=== PATIENT | male | born 1965 | race African-American/Black ===

== ENCOUNTER 2016-07-11 10:10 | Inpatient (IN) | payer OTHER ==
[2016-07-11 10:50] VITALS: BMI 25.8
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
[2016-07-11] MEDS ORDERED: MAGNESIUM CITRATE 300 ML BOTTLE PO PRN (15:14)
[2016-07-11] MEDS ORDERED: MAGNESIUM HYDROX 2400MG/30ML ORAL SUSPENSION 30 ML CUP PO PRN (15:14)
[2016-07-11] MEDS ORDERED: P-EPHED 60MG/TRIPROLIDI 2.5MG TABLET PO PRN (15:14)
[2016-07-11] MEDS ORDERED: MENTHOL/PHENOL 1 EACH UD MM PRN (15:14)
[2016-07-11] MEDS ORDERED: LOPERAMIDE HCL 2 MG CAPSULE PO PRN (15:14)
[2016-07-11] MEDS ORDERED: MAG HYDROX/AL HYDROX/SIMETH 30 ML UNIT-DOSE CUP PO PRN (15:14)
[2016-07-11] MEDS ORDERED: guaiFENesin/D-METHORPHAN HB 10 ML UNIT-DOSE CUPS PO PRN (15:14)
[2016-07-11] MEDS ORDERED: NICOTINE POLACRILEX 2 MG GUM BUC PRN (15:14)
[2016-07-11] MEDS ORDERED: ACETAMINOPHEN 325 MG TABLET (FP) PO PRN (15:14)
[2016-07-11] MEDS ORDERED: IBUPROFEN 400 MG TABLET (FP) PO PRN (15:14)
[2016-07-11] MEDS ORDERED: chlordiazePOXIDE HCL 25 MG CAPSULE PO PRN (15:14)
[2016-07-11] MEDS ORDERED: diphenhydrAMINE HCL 50 MG CAPSULE PO PRN (15:14)
[2016-07-11] MEDS ORDERED: hydrOXYzine PAMOATE 50 MG CAPSULE (FP) PO PRN (15:14)
[2016-07-11] MEDS ORDERED: chlordiazePOXIDE HCL 25 MG CAPSULE PO ONE (15:24)
[2016-07-11] MEDS ORDERED: METHADONE HCL 10 MG TABLET (FOR DETOX USE ONLY) PO ONE ×2 (15:25→23:00)
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
[2016-07-11] MEDS: NICOTINE 21 MG/24 HOURS TOPICAL PATCH TD SCH (15:38)
[2016-07-11 17:08] LABS: URINE APPEARANCE CLEAR; URINE BILIRUBIN NEGATIVE (NEGATIVE); URINE BLOOD NEGATIVE (NEGATIVE); URINE COLOR LTYELLOW; URINE GLUCOSE (UA) NEGATIVE (NEGATIVE); URINE KETONE NEGATIVE (NEGATIVE); URINE LEUK ESTERASE NEGATIVE (NEGATIVE); URINE NITRITE NEGATIVE (NEGATIVE); URINE PROTEIN NEGATIVE (NEGATIVE); URINE UROBILINOGEN NEGATIVE E.U./dl (0.2-1.0)
[2016-07-11] MEDS: chlordiazePOXIDE HCL 25 MG CAPSULE PO SCH ×2 (17:37→22:05)
[2016-07-11] MEDS: QUEtiapine FUMARATE 50 MG TABLET PO SCH (22:05)
[2016-07-11] MEDS: THIAMINE HCL 100 MG TABLET (FP) PO SCH (22:05)
[2016-07-12] MEDS: chlordiazePOXIDE HCL 25 MG CAPSULE PO SCH ×4 (06:01→22:50)
[2016-07-12] MEDS ORDERED: METHADONE HCL 10 MG TABLET (FOR DETOX USE ONLY) PO SCH (10:00)
[2016-07-12 10:43] LABS: MCH 29.8 pg (25.7-33.7); MCHC 32.7 g/dl (32.0-35.9); MEAN CELL VOLUME 91.1 fl (80-96); PLATELET COUNT 200 K/MM3 (134-434); RDW 14.3 % (11.9-15.9); WHITE BLOOD COUNT 4.9 K/mm3 (4.0-10.0)
[2016-07-12 10:54] LABS: ALBUMIN 3.9 g/dl (3.4-5.0); ANION GAP 6 (8-16); CALCIUM 9.3 mg/dL (8.5-10.1); CO2 33 mmol/L (21-32); CREATININE 0.9 mg/dL (0.7-1.3); GLUCOSE,RANDOM 100 mg/dL (74-106); SGOT/AST 25 U/L (15-37); SGPT/ALT 38 U/L (12-78)
[2016-07-12 10:56] LABS: ALK PHOS 72 U/L (45-117); BILIRUBIN,TOTAL 0.6 mg/dL (0.2-1.0); TOT PROT 7.4 g/dl (6.4-8.2)
[2016-07-12] MEDS: PRENATAL VITAMINS W/ FOLIC ACID TABLET (FP) PO SCH (11:23)
[2016-07-12] MEDS: NICOTINE 21 MG/24 HOURS TOPICAL PATCH TD SCH (11:24)
--- NOTE | 2016-07-12 12:01 | PN ---
S CIWA - CIWA Score Nausea/Vomitin Muscle Tremors: 3 Anxiety: 3 Agitation: 3 Paroxysmal Sweats: 1-Minimal Palms Moist Orientation: 0-Oriented Tacttile Disturbances: 1-Very Mild Itch/Numbness Auditory Disturbances: 1-Very Mild Visual Disturbances: 1-Very Mild Sensitivity Headache: 2-Mild CIWA-Ar Total Score: 18 BHS COWS - Scale Resting Pulse: 0= [place] 80 or Below Sweatin= Chills/Flushing Restless Observation: 3= Extraneous Movement Pupil Size: 1= Pupils >than Normal Bone or Joint Aches: 2= Severe Diffuse Aches Runny Nose/ Eye Tearin= Runny Nose/Eyes GI Upset > 30mins: 2= Nausea/Diarrhea Tremor Observation of Outstretched Hands: 2= Slight Tremor Visible Yawning Observation: 1= 1-2x During Session Anxiety or Irritability: 2=Irritable/Anxious Goose Flesh Skin: 0=Smooth Skin COWS Score: 16 S Progress Note (SOAP) Subjective: ALERT,IRRITABLE,ANXIOUS,INTERRUPTED SLEEP,TREMOR,PAIN IN THE BODY AND BACK Objective: 07/12/16 11:58 Vital Signs Temperature 96.6 F L 07/12/16 09:53 Pulse Rate 64 07/12/16 09:53 Respiratory Rate 16 07/12/16 09:53 Blood Pressure 113/67 07/12/16 09:53 O2 Sat by Pulse Oximetry (%) EKG SINUS BRADYCARDIA NO CHEST PAIN,NO SOB,NO DIZZINESS 07/12/16 11:59 Laboratory Last Values WBC 4.9 K/mm3 (4.0-10.0) 07/12/16 06:00 RBC 5.50 M/mm3 (4.00-5.60) 07/12/16 06:00 Hgb 16.4 GM/dL (11.7-16.9) 07/12/16 06:00 Hct 50.1 % (35.4-49) H 07/12/16 06:00 MCV 91.1 fl (80-96) 07/12/16 06:00 MCHC 32.7 g/dl (32.0-35.9) 07/12/16 06:00 RDW 14.3 % (11.9-15.9) 07/12/16 06:00 Plt Count 200 K/MM3 (134-434) 07/12/16 06:00 MPV 9.0 fl (7.5-11.1) 07/12/16 06:00 Sodium 139 mmol/L (136-145) 07/12/16 06:00 Potassium 5.0 mmol/L (3.5-5.1) 07/12/16 06:00 Chloride 100 mmol/L (98-107) 07/12/16 06:00 Carbon Dioxide 33 mmol/L (21-32) H 07/12/16 06:00 Anion Gap 6 (8-16) L 07/12/16 06:00 BUN 9 mg/dL (7-18) 07/12/16 06:00 Creatinine 0.9 mg/dL (0.7-1.3) 07/12/16 06:00 Creat Clearance w eGFR > 60 (>60) 07/12/16 06:00 Random Glucose 100 mg/dL (74-106) 07/12/16 06:00 Calcium 9.3 mg/dL (8.5-10.1) 07/12/16 06:00 Total Bilirubin 0.6 mg/dL (0.2-1.0) 07/12/16 06:00 AST 25 U/L (15-37) 07/12/16 06:00 ALT 38 U/L (12-78) 07/12/16 06:00 Alkaline Phosphatase 72 U/L (45-117) 07/12/16 06:00 Total Protein 7.4 g/dl (6.4-8.2) 07/12/16 06:00 Albumin 3.9 g/dl (3.4-5.0) 07/12/16 06:00 Urine Color Ltyellow 07/11/16 13:00 Urine Appearance Clear 07/11/16 13:00 Urine pH 6.0 (5.0-8.0) 07/11/16 13:00 Ur Specific [place] 1.019 (1.001-1.035) 07/11/16 13:00 Urine Protein Negative (NEGATIVE) 07/11/16 13:00 Urine Glucose (UA) Negative (NEGATIVE) 07/11/16 13:00 Urine Ketones Negative (NEGATIVE) 07/11/16 13:00 Urine Blood Negative (NEGATIVE) 07/11/16 13:00 Urine Nitrite Negative (NEGATIVE) 07/11/16 13:00 Urine Bilirubin Negative (NEGATIVE) 07/11/16 13:00 Urine Urobilinogen Negative E.U./dl (0.2-1.0) 07/11/16 13:00 Ur Leukocyte Esterase Negative (NEGATIVE) 07/11/16 13:00 Assessment: 07/12/16 12:00 WITHDRAWAL SYMPTOM Plan: CONTINUE DETOX
--- NOTE | 2016-07-12 12:33 | EKG ---
Test Reason : Blood Pressure : / mmHG Vent. Rate : 059 BPM Atrial Rate : 059 BPM P-R Int : 184 ms QRS Dur : 086 ms QT Int : 380 ms P-R-T Axes : 050 -50 -29 degrees QTc Int : 376 ms SINUS BRADYCARDIA LEFT AXIS DEVIATION ABNORMAL ECG NO PREVIOUS ECGS AVAILABLE Confirmed by IMMANUEL HARTMANN MD ([id number]) on 07/12/2016 12:32:48 PM Referred By: Confirmed By:IMMANUEL HARTMANN MD
[2016-07-12] MEDS: QUEtiapine FUMARATE 50 MG TABLET PO SCH (22:50)
[2016-07-12] MEDS: THIAMINE HCL 100 MG TABLET (FP) PO SCH (22:50)
[2016-07-13] MEDS: chlordiazePOXIDE HCL 25 MG CAPSULE PO SCH ×2 (05:13→11:11)
--- NOTE | 2016-07-13 10:15 | PN ---
[facility] CIWA - CIWA Score Nausea/Vomitin Muscle Tremors: 3 Anxiety: 3 Agitation: 2 Paroxysmal Sweats: 1-Minimal Palms Moist Orientation: 0-Oriented Tacttile Disturbances: 1-Very Mild Itch/Numbness Auditory Disturbances: 1-Very Mild Visual Disturbances: 1-Very Mild Sensitivity Headache: 2-Mild CIWA-Ar Total Score: 17 BHS COWS - Scale Resting Pulse: 0= [place] 80 or Below Sweatin= Chills/Flushing Restless Observation: 3= Extraneous Movement Pupil Size: 1= Pupils >than Normal Bone or Joint Aches: 2= Severe Diffuse Aches Runny Nose/ Eye Tearin= Runny Nose/Eyes GI Upset > 30mins: 2= Nausea/Diarrhea Tremor Observation of Outstretched Hands: 2= Slight Tremor Visible Yawning Observation: 1= 1-2x During Session Anxiety or Irritability: 2=Irritable/Anxious Goose Flesh Skin: 0=Smooth Skin COWS Score: 16 S Progress Note (SOAP) Subjective: ALERT,IRRITABLE,ANXIOUS,INTERRUPTED SLEEP,TREMOR,PAIN IN THE BODY AND BACK Objective: 07/13/16 10:13 Vital Signs Temperature 97.0 F L 07/13/16 06:27 Pulse Rate 56 L 07/13/16 06:27 Respiratory Rate 16 07/13/16 06:27 Blood Pressure 133/72 07/13/16 06:27 O2 Sat by Pulse Oximetry (%) Laboratory Last Values WBC 4.9 K/mm3 (4.0-10.0) 07/12/16 06:00 RBC 5.50 M/mm3 (4.00-5.60) 07/12/16 06:00 Hgb 16.4 GM/dL (11.7-16.9) 07/12/16 06:00 Hct 50.1 % (35.4-49) H 07/12/16 06:00 MCV 91.1 fl (80-96) 07/12/16 06:00 MCHC 32.7 g/dl (32.0-35.9) 07/12/16 06:00 RDW 14.3 % (11.9-15.9) 07/12/16 06:00 Plt Count 200 K/MM3 (134-434) 07/12/16 06:00 MPV 9.0 fl (7.5-11.1) 07/12/16 06:00 Sodium 139 mmol/L (136-145) 07/12/16 06:00 Potassium 5.0 mmol/L (3.5-5.1) 07/12/16 06:00 Chloride 100 mmol/L (98-107) 07/12/16 06:00 Carbon Dioxide 33 mmol/L (21-32) H 07/12/16 06:00 Anion Gap 6 (8-16) L 07/12/16 06:00 BUN 9 mg/dL (7-18) 07/12/16 06:00 Creatinine 0.9 mg/dL (0.7-1.3) 07/12/16 06:00 Creat Clearance w eGFR > 60 (>60) 07/12/16 06:00 Random Glucose 100 mg/dL (74-106) 07/12/16 06:00 Calcium 9.3 mg/dL (8.5-10.1) 07/12/16 06:00 Total Bilirubin 0.6 mg/dL (0.2-1.0) 07/12/16 06:00 AST 25 U/L (15-37) 07/12/16 06:00 ALT 38 U/L (12-78) 07/12/16 06:00 Alkaline Phosphatase 72 U/L (45-117) 07/12/16 06:00 Total Protein 7.4 g/dl (6.4-8.2) 07/12/16 06:00 Albumin 3.9 g/dl (3.4-5.0) 07/12/16 06:00 Urine Color Ltyellow 07/11/16 13:00 Urine Appearance Clear 07/11/16 13:00 Urine pH 6.0 (5.0-8.0) 07/11/16 13:00 Ur Specific [place] 1.019 (1.001-1.035) 07/11/16 13:00 Urine Protein Negative (NEGATIVE) 07/11/16 13:00 Urine Glucose (UA) Negative (NEGATIVE) 07/11/16 13:00 Urine Ketones Negative (NEGATIVE) 07/11/16 13:00 Urine Blood Negative (NEGATIVE) 07/11/16 13:00 Urine Nitrite Negative (NEGATIVE) 07/11/16 13:00 Urine Bilirubin Negative (NEGATIVE) 07/11/16 13:00 Urine Urobilinogen Negative E.U./dl (0.2-1.0) 07/11/16 13:00 Ur Leukocyte Esterase Negative (NEGATIVE) 07/11/16 13:00 RPR Titer Nonreactive (NONREACTIVE) 07/12/16 06:00 Assessment: 07/13/16 10:14 WITHDRAWAL SYMPTOM Plan: CONTINUE DETOX ,ENCOURAGE ORAL FLUID
[2016-07-13] MEDS: PRENATAL VITAMINS W/ FOLIC ACID TABLET (FP) PO SCH (11:11)
[2016-07-13] MEDS: NICOTINE 21 MG/24 HOURS TOPICAL PATCH TD SCH (11:11)
[2016-07-13] MEDS: METHADONE HCL 5 MG TABLET (FOR DETOX USE ONLY) PO SCH (11:12)
[2016-07-13] MEDS: chlordiazePOXIDE 5 MG CAPSULE PO SCH ×2 (17:20→22:56)
[2016-07-13] MEDS: QUEtiapine FUMARATE 50 MG TABLET PO SCH (22:56)
[2016-07-13] MEDS: THIAMINE HCL 100 MG TABLET (FP) PO SCH (22:56)
[2016-07-13] MEDS: ALBUTEROL SO4 6.7 GM HFA INHALER IH PRN (22:59)
[2016-07-14] MEDS: chlordiazePOXIDE 5 MG CAPSULE PO SCH ×2 (05:51→11:35)
[2016-07-14] MEDS: METHADONE HCL 5 MG TABLET (FOR DETOX USE ONLY) PO SCH (11:35)
[2016-07-14] MEDS: PRENATAL VITAMINS W/ FOLIC ACID TABLET (FP) PO SCH (11:35)
[2016-07-14] MEDS: NICOTINE 21 MG/24 HOURS TOPICAL PATCH TD SCH (11:37)
--- NOTE | 2016-07-14 17:01 | PN ---
BHS Progress Note (SOAP) Subjective: Tremors, Interrupted Sleep, Sweating. Objective: PT. A & OX 2 (DISORIENTED ABOUT DAY / DATE). PT. OBSERVED AMBULATING ON UNIT. 07/14/16 17:00 Vital Signs Temperature 97.2 F L 07/14/16 14:28 Pulse Rate 75 07/14/16 14:28 Respiratory Rate 18 07/14/16 14:28 Blood Pressure 119/67 07/14/16 14:28 O2 Sat by Pulse Oximetry (%) Laboratory Last Values WBC 4.9 K/mm3 (4.0-10.0) 07/12/16 06:00 RBC 5.50 M/mm3 (4.00-5.60) 07/12/16 06:00 Hgb 16.4 GM/dL (11.7-16.9) 07/12/16 06:00 Hct 50.1 % (35.4-49) H 07/12/16 06:00 MCV 91.1 fl (80-96) 07/12/16 06:00 MCHC 32.7 g/dl (32.0-35.9) 07/12/16 06:00 RDW 14.3 % (11.9-15.9) 07/12/16 06:00 Plt Count 200 K/MM3 (134-434) 07/12/16 06:00 MPV 9.0 fl (7.5-11.1) 07/12/16 06:00 Sodium 139 mmol/L (136-145) 07/12/16 06:00 Potassium 5.0 mmol/L (3.5-5.1) 07/12/16 06:00 Chloride 100 mmol/L (98-107) 07/12/16 06:00 Carbon Dioxide 33 mmol/L (21-32) H 07/12/16 06:00 Anion Gap 6 (8-16) L 07/12/16 06:00 BUN 9 mg/dL (7-18) 07/12/16 06:00 Creatinine 0.9 mg/dL (0.7-1.3) 07/12/16 06:00 Creat Clearance w eGFR > 60 (>60) 07/12/16 06:00 Random Glucose 100 mg/dL (74-106) 07/12/16 06:00 Calcium 9.3 mg/dL (8.5-10.1) 07/12/16 06:00 Total Bilirubin 0.6 mg/dL (0.2-1.0) 07/12/16 06:00 AST 25 U/L (15-37) 07/12/16 06:00 ALT 38 U/L (12-78) 07/12/16 06:00 Alkaline Phosphatase 72 U/L (45-117) 07/12/16 06:00 Total Protein 7.4 g/dl (6.4-8.2) 07/12/16 06:00 Albumin 3.9 g/dl (3.4-5.0) 07/12/16 06:00 Urine Color Ltyellow 07/11/16 13:00 Urine Appearance Clear 07/11/16 13:00 Urine pH 6.0 (5.0-8.0) 07/11/16 13:00 Ur Specific [place] 1.019 (1.001-1.035) 07/11/16 13:00 Urine Protein Negative (NEGATIVE) 07/11/16 13:00 Urine Glucose (UA) Negative (NEGATIVE) 07/11/16 13:00 Urine Ketones Negative (NEGATIVE) 07/11/16 13:00 Urine Blood Negative (NEGATIVE) 07/11/16 13:00 Urine Nitrite Negative (NEGATIVE) 07/11/16 13:00 Urine Bilirubin Negative (NEGATIVE) 07/11/16 13:00 Urine Urobilinogen Negative E.U./dl (0.2-1.0) 07/11/16 13:00 Ur Leukocyte Esterase Negative (NEGATIVE) 07/11/16 13:00 RPR Titer Nonreactive (NONREACTIVE) 07/12/16 06:00 LABS NOTED. Assessment: 07/14/16 17:01 WITHDRAWAL SYMPTOMS. Plan: CONTINUE DETOX. ADVISED PATIENT TO FOLLOW-UP WITH NURSING CARE ATTENDANT / REHAB MEDICAL PROVIDER AFTER DISCHARGE FROM DETOX FOR GENERAL MEDICAL ASSESSMENT AND FOR ABNORMAL ADMISSION LAB VALUES.
[2016-07-14] MEDS: ALBUTEROL SO4 6.7 GM HFA INHALER IH PRN (17:50)
[2016-07-14] MEDS: chlordiazePOXIDE HCL 10 MG CAPSULE PO SCH ×2 (18:51→22:54)
[2016-07-14] MEDS: QUEtiapine FUMARATE 50 MG TABLET PO SCH (22:54)
[2016-07-14] MEDS: THIAMINE HCL 100 MG TABLET (FP) PO SCH (22:54)
[2016-07-15] MEDS: chlordiazePOXIDE HCL 10 MG CAPSULE PO SCH ×2 (06:47→10:55)
[2016-07-15] MEDS ORDERED: chlordiazePOXIDE 5 MG CAPSULE ONE (09:43)
[2016-07-15] MEDS ORDERED: METHADONE HCL 10 MG TABLET (FOR DETOX USE ONLY) PO SCH (10:00)
[2016-07-15] MEDS: PRENATAL VITAMINS W/ FOLIC ACID TABLET (FP) PO SCH (11:10)
[2016-07-15] MEDS: NICOTINE 21 MG/24 HOURS TOPICAL PATCH TD SCH (11:11)
--- NOTE | 2016-07-15 11:27 | PN ---
BHS Progress Note (SOAP) Subjective: Sweating,interrupted sleep,restless Objective: 07/15/16 11:26 Vital Signs - 8 hr 07/15/16 07/15/16 07/15/16 03:30 06:00 10:00 Temperature 97.7 F 97.5 F L Pulse Rate 65 74 Respiratory 18 18 16 Rate Blood Pressure 123/69 106/61 Laboratory Tests 07/11/16 07/12/16 07/12/16 13:00 06:00 06:00 WBC 4.9 RBC 5.50 Hgb 16.4 Hct 50.1 H MCV 91.1 MCHC 32.7 RDW 14.3 Plt Count 200 MPV 9.0 Sodium 139 Potassium 5.0 Chloride 100 Carbon Dioxide 33 H Anion Gap 6 L BUN 9 Creatinine 0.9 Creat Clearance w eGFR > 60 Random Glucose 100 Calcium 9.3 Total Bilirubin 0.6 AST 25 ALT 38 Alkaline Phosphatase 72 Total Protein 7.4 Albumin 3.9 Urine Color Ltyellow Urine Appearance Clear Urine pH 6.0 Ur Specific [place] 1.019 Urine Protein Negative Urine Glucose (UA) Negative Urine Ketones Negative Urine Blood Negative Urine Nitrite Negative Urine Bilirubin Negative Urine Urobilinogen Negative Ur Leukocyte Esterase Negative RPR Titer 07/12/16 06:00 WBC RBC Hgb Hct MCV MCHC RDW Plt Count MPV Sodium Potassium Chloride Carbon Dioxide Anion Gap BUN Creatinine Creat Clearance w eGFR Random Glucose Calcium Total Bilirubin AST ALT Alkaline Phosphatase Total Protein Albumin Urine Color Urine Appearance Urine pH Ur Specific [place] Urine Protein Urine Glucose (UA) Urine Ketones Urine Blood Urine Nitrite Urine Bilirubin Urine Urobilinogen Ur Leukocyte Esterase RPR Titer Nonreactive labs noted Assessment: 07/15/16 11:27 Withdrawal sx. Plan: Continue detox
[2016-07-15] MEDS: THIAMINE HCL 100 MG TABLET (FP) PO SCH (22:32)
[2016-07-15] MEDS: QUEtiapine FUMARATE 50 MG TABLET PO SCH (22:32)
[2016-07-16] MEDS ORDERED: METHADONE HCL 5 MG TABLET (FOR DETOX USE ONLY) PO SCH (06:00)
[2016-07-16 09:17] VITALS: BP 114/66; PULSE 74; TEMP 97.5
--- NOTE | 2016-07-16 09:19 | DS ---
[facility] Detox Discharge Summary Admission Date: 07/11/16 Discharge Date: 07/16/16 - History Present History: Alcohol Dependence, Cannabis Dependence, Cocaine Dependence - Physical Exam Results Vital Signs: Vital Signs Temperature 97.3 F L 07/16/16 06:14 Pulse Rate 71 07/16/16 06:14 Respiratory Rate 18 07/16/16 06:14 Blood Pressure 119/86 07/16/16 06:14 O2 Sat by Pulse Oximetry (%) - Medication Discharge Medications: Ambulatory Orders Albuterol Sulfate Inhaler - [Ventolin Hfa Inhaler -] 2 inh PO Q4H PRN 07/11/16 Quetiapine Fumarate [Seroquel -] 50 mg PO HS #30 tablet 07/11/16 - Diagnosis (1) Alcohol dependence with uncomplicated withdrawal Current Visit: Yes Status: Chronic (2) Asthma Current Visit: Yes Status: Chronic Qualifiers: Asthma severity: mild intermittent (3) Cannabis dependence Current Visit: Yes Status: Chronic (4) Cocaine dependence Current Visit: Yes Status: Acute Qualifiers: Complication of substance-induced condition: uncomplicated (5) Nicotine dependence Current Visit: Yes Status: Acute Qualifiers: Nicotine product type: cigarettes Substance use status: uncomplicated Qualified Code(s): F17.210 - Nicotine dependence, cigarettes, uncomplicated (6) Opioid dependence with withdrawal Current Visit: Yes Status: Chronic (7) PCP abuse Current Visit: Yes Status: Chronic - AMA Did Patient Leave Against Medical Advice: No
== END 2016-07-16 10:12 | disposition home or self-care (01) | DRG 773 ==
LOC: YASAS 10:10 → Y6N 13:43
PROVIDERS: ADMIT Internal Medicine Addiction Medicine; ATTEND Internal Medicine Addiction Medicine
PROC: HZ2ZZZZ Detoxification Services for Substance Abuse Treatment (ICD-10-PCS; principal; 2016-07-11)
DX: F11.23 Opioid dependence with withdrawal (principal); F10.230 Alcohol dependence with withdrawal, uncomplicated; F14.20 Cocaine dependence, uncomplicated; F12.20 Cannabis dependence, uncomplicated; F16.10 Hallucinogen abuse, uncomplicated; F17.210 Nicotine dependence, cigarettes, uncomplicated; F43.10 Post-traumatic stress disorder, unspecified; J45.909 Unspecified asthma, uncomplicated; R00.1 Bradycardia, unspecified; G47.00 Insomnia, unspecified; Z93.0 Tracheostomy status; Z86.79 Personal history of other diseases of the circulatory system; Z91.5 Personal history of self-harm; Z87.898 Personal history of other specified conditions
CPT/HCPCS: 36415; 80053; 81003; 85027; 86593; 93005; 93010

== ENCOUNTER 2018-03-03 11:48 | Inpatient (IN) | payer OTHER ==
[2018-03-03 13:36] VITALS: BMI 24.5
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
[2018-03-03] MEDS ORDERED: guaiFENesin/D-METHORPHAN HB 10 ML UNIT-DOSE CUPS PO PRN (21:30)
[2018-03-03] MEDS ORDERED: MAG HYDROX/AL HYDROX/SIMETH 30 ML UNIT-DOSE CUP PO PRN (21:30)
[2018-03-03] MEDS ORDERED: IBUPROFEN 400 MG TABLET (FP) PO PRN (21:30)
[2018-03-03] MEDS ORDERED: LOPERAMIDE HCL 2 MG CAPSULE PO PRN (21:30)
[2018-03-03] MEDS ORDERED: P-EPHED 60MG/TRIPROLIDI 2.5MG TABLET PO PRN (21:30)
[2018-03-03] MEDS ORDERED: ACETAMINOPHEN 325 MG TABLET (FP) PO PRN (21:30)
[2018-03-03] MEDS ORDERED: MAGNESIUM HYDROX 2400MG/30ML ORAL SUSPENSION 30 ML CUP PO PRN (21:30)
[2018-03-03] MEDS ORDERED: MENTHOL/PHENOL 1 EACH UD MM PRN (21:30)
[2018-03-03] MEDS ORDERED: MAGNESIUM CITRATE 300 ML BOTTLE PO PRN (21:30)
[2018-03-03] MEDS ORDERED: hydrOXYzine PAMOATE 25 MG CAPSULE (FP) PO PRN (21:30)
[2018-03-03] MEDS ORDERED: ALBUTEROL SO4 8 GM HFA INHALER IH PRN (21:37)
[2018-03-03] MEDS ORDERED: MELATONIN 5 MG TABLETS PO PRN (22:00)
[2018-03-03] MEDS: diazePAM 5 MG TABLET PO PRN (23:00)
[2018-03-03] MEDS: THIAMINE HCL 100 MG TABLET (FP) PO SCH (23:01)
[2018-03-04 00:59] LABS: URINE APPEARANCE SLCLOUDY; URINE BILIRUBIN NEGATIVE (<2.0 mg/dL); URINE COLOR YELLOW; URINE GLUCOSE (UA) NEGATIVE (NEGATIVE); URINE KETONE NEGATIVE (NEGATIVE); URINE LEUK ESTERASE NEGATIVE (NEGATIVE); URINE NITRITE NEGATIVE (NEGATIVE); URINE PROTEIN NEGATIVE (NEGATIVE)
[2018-03-04] MEDS ORDERED: METHADONE HCL 10 MG TABLET (FOR DETOX USE ONLY) PO ONE (10:00)
[2018-03-04] MEDS: diazePAM 5 MG TABLET PO PRN (10:07)
[2018-03-04] MEDS: PRENATAL VITAMINS W/ FOLIC ACID TABLET (FP) PO SCH (10:07)
[2018-03-04] MEDS: NICOTINE 14 MG/24 HOURS TOPICAL PATCH TD SCH (10:08)
[2018-03-04] MEDS ORDERED: cloNIDine HCL 0.1 MG TABLET PO PRN (10:39)
[2018-03-04 10:57] LABS: HEMOGLOBIN 14.7 GM/dL (11.7-16.9); MCH 29.1 pg (25.7-33.7); MCHC 31.9 g/dl (32.0-35.9); MEAN CELL VOLUME 91.4 fl (80-96); MEAN PLT VOLUME 8.3 fl (7.5-11.1); PLATELET COUNT 219 K/MM3 (134-434); RBC 5.03 M/mm3 (4.00-5.60); RDW 14.7 % (11.9-15.9); WHITE BLOOD COUNT 5.3 K/mm3 (4.0-10.0)
--- NOTE | 2018-03-04 11:01 | PN ---
BHS COWS - Scale Resting Pulse: 0= [place] 80 or Below Sweatin= Chills/Flushing Restless Observation: 0= Sits Still Pupil Size: 1= Pupils >than Normal Bone or Joint Aches: 2= Severe Diffuse Aches Runny Nose/ Eye Tearin= Nasal Congestion GI Upset > 30mins: 1= Stomach Cramp Tremor Observation of Outstretched Hands: 1= Tremor [place], Not Seen Yawning Observation: 1= 1-2x During Session Anxiety or Irritability: 2=Irritable/Anxious Goose Flesh Skin: 0=Smooth Skin COWS Score: 10 BHS Progress Note (SOAP) Subjective: low energy tremor body aches sweat Objective: 03/04/18 11:02 Vital Signs Temperature 97.7 F 03/04/18 10:11 Pulse Rate 96 H 03/04/18 10:11 Respiratory Rate 18 03/04/18 10:11 Blood Pressure 161/109 H 03/04/18 10:11 O2 Sat by Pulse Oximetry (%) Laboratory Last Values WBC 5.3 K/mm3 (4.0-10.0) 03/04/18 07:00 RBC 5.03 M/mm3 (4.00-5.60) 03/04/18 07:00 Hgb 14.7 GM/dL (11.7-16.9) 03/04/18 07:00 Hct 46.0 % (35.4-49) 03/04/18 07:00 MCV 91.4 fl (80-96) 03/04/18 07:00 MCH 29.1 pg (25.7-33.7) 03/04/18 07:00 MCHC 31.9 g/dl (32.0-35.9) L 03/04/18 07:00 RDW 14.7 % (11.9-15.9) 03/04/18 07:00 Plt Count 219 K/MM3 (134-434) 03/04/18 07:00 MPV 8.3 fl (7.5-11.1) 03/04/18 07:00 Urine Color Yellow 03/03/18 23:39 Urine Appearance Slcloudy 03/03/18 23:39 Urine pH 5.0 (5.0-8.0) 03/03/18 23:39 Ur Specific [place] 1.032 (1.010-1.035) 03/03/18 23:39 Urine Protein Negative (NEGATIVE) 03/03/18 23:39 Urine Glucose (UA) Negative (NEGATIVE) 03/03/18 23:39 Urine Ketones Negative (NEGATIVE) 03/03/18 23:39 Urine Blood Negative (NEGATIVE) 03/03/18 23:39 Urine Nitrite Negative (NEGATIVE) 03/03/18 23:39 Urine Bilirubin Negative (<2.0 mg/dL) 03/03/18 23:39 Urine Urobilinogen 2.0 mg/dL (0.2-1.0) 03/03/18 23:39 Ur Leukocyte Esterase Negative (NEGATIVE) 03/03/18 23:39 lab noted long history of hypertension none adherence to antihypertensant clonidine prn systolic above 140 Assessment: 03/04/18 11:03 withdrawal sx Plan: continue detox
[2018-03-04] MEDS: BUDESONIDE/FORMETEROL FUMARATE 80/4.5 mcg INHALER IH SCH ×2 (11:24→22:10)
[2018-03-04 11:32] LABS: ALBUMIN 3.3 g/dl (3.4-5.0); ALK PHOS 71 U/L (45-117); ANION GAP 7 MMOL/L (8-16); BILIRUBIN,TOTAL 0.4 mg/dL (0.2-1); BLOOD UREA NITROGEN 14 mg/dL (7-18); CALCIUM 8.1 mg/dL (8.5-10.1); CHLORIDE 108 mmol/L (98-107); CO2 27 mmol/L (21-32); CREATININE 0.8 mg/dL (0.55-1.3); GLUCOSE,RANDOM 91 mg/dL (74-106); POTASSIUM 4.1 mmol/L (3.5-5.1); SGOT/AST 41 U/L (15-37); SGPT/ALT 45 U/L (13-61); SODIUM 141 mmol/L (136-145); TOT PROT 6.5 g/dl (6.4-8.2)
--- NOTE | 2018-03-04 17:57 | CONSULT ---
[facility] Psychiatric Consult - Data Date of interview: 03/04/18 Admission source: [facility] Identifying data: Approached patient, on two occasions, at bedside. Asleep. Psychiatric interview deferred.
[2018-03-04] MEDS: THIAMINE HCL 100 MG TABLET (FP) PO SCH (22:10)
[2018-03-05] MEDS ORDERED: METHADONE HCL 5 MG TABLET (FOR DETOX USE ONLY) PO ONE (10:00)
[2018-03-05] MEDS: diazePAM 5 MG TABLET PO PRN (10:06)
[2018-03-05] MEDS: BUDESONIDE/FORMETEROL FUMARATE 80/4.5 mcg INHALER IH SCH ×2 (10:06→22:13)
[2018-03-05] MEDS: PRENATAL VITAMINS W/ FOLIC ACID TABLET (FP) PO SCH (10:06)
[2018-03-05] MEDS: NICOTINE 14 MG/24 HOURS TOPICAL PATCH TD SCH (10:29)
--- NOTE | 2018-03-05 11:25 | PN ---
BHS COWS - Scale Resting Pulse: 0= [place] 80 or Below Sweatin= Chills/Flushing Restless Observation: 0= Sits Still Pupil Size: 1= Pupils >than Normal Bone or Joint Aches: 1= Mild Discomfort Runny Nose/ Eye Tearin= Nasal Congestion GI Upset > 30mins: 1= Stomach Cramp Tremor Observation of Outstretched Hands: 1= Tremor [place], Not Seen Yawning Observation: 1= 1-2x During Session Anxiety or Irritability: 2=Irritable/Anxious Goose Flesh Skin: 0=Smooth Skin COWS Score: 9 BHS Progress Note (SOAP) Subjective: body aches muscle cramp sweat tremor Objective: 03/05/18 11:25 Vital Signs Temperature 97.4 F L 03/05/18 09:30 Pulse Rate 67 03/05/18 09:30 Respiratory Rate 18 03/05/18 09:30 Blood Pressure 119/64 03/05/18 09:30 O2 Sat by Pulse Oximetry (%) Laboratory Last Values WBC 5.3 K/mm3 (4.0-10.0) 03/04/18 07:00 RBC 5.03 M/mm3 (4.00-5.60) 03/04/18 07:00 Hgb 14.7 GM/dL (11.7-16.9) 03/04/18 07:00 Hct 46.0 % (35.4-49) 03/04/18 07:00 MCV 91.4 fl (80-96) 03/04/18 07:00 MCH 29.1 pg (25.7-33.7) 03/04/18 07:00 MCHC 31.9 g/dl (32.0-35.9) L 03/04/18 07:00 RDW 14.7 % (11.9-15.9) 03/04/18 07:00 Plt Count 219 K/MM3 (134-434) 03/04/18 07:00 MPV 8.3 fl (7.5-11.1) 03/04/18 07:00 Sodium 141 mmol/L (136-145) 03/04/18 07:00 Potassium 4.1 mmol/L (3.5-5.1) 03/04/18 07:00 Chloride 108 mmol/L (98-107) H 03/04/18 07:00 Carbon Dioxide 27 mmol/L (21-32) 03/04/18 07:00 Anion Gap 7 MMOL/L (8-16) L 03/04/18 07:00 BUN 14 mg/dL (7-18) 03/04/18 07:00 Creatinine 0.8 mg/dL (0.55-1.3) 03/04/18 07:00 Creat Clearance w eGFR > 60 (>60) 03/04/18 07:00 Random Glucose 91 mg/dL (74-106) 03/04/18 07:00 Calcium 8.1 mg/dL (8.5-10.1) L 03/04/18 07:00 Total Bilirubin 0.4 mg/dL (0.2-1) 03/04/18 07:00 AST 41 U/L (15-37) H 03/04/18 07:00 ALT 45 U/L (13-61) 03/04/18 07:00 Alkaline Phosphatase 71 U/L (45-117) 03/04/18 07:00 Total Protein 6.5 g/dl (6.4-8.2) 03/04/18 07:00 Albumin 3.3 g/dl (3.4-5.0) L 03/04/18 07:00 Urine Color Yellow 03/03/18 23:39 Urine Appearance Slcloudy 03/03/18 23:39 Urine pH 5.0 (5.0-8.0) 03/03/18 23:39 Ur Specific [place] 1.032 (1.010-1.035) 03/03/18 23:39 Urine Protein Negative (NEGATIVE) 03/03/18 23:39 Urine Glucose (UA) Negative (NEGATIVE) 03/03/18 23:39 Urine Ketones Negative (NEGATIVE) 03/03/18 23:39 Urine Blood Negative (NEGATIVE) 03/03/18 23:39 Urine Nitrite Negative (NEGATIVE) 03/03/18 23:39 Urine Bilirubin Negative (<2.0 mg/dL) 03/03/18 23:39 Urine Urobilinogen 2.0 mg/dL (0.2-1.0) 12 23:39 Ur Leukocyte Esterase Negative (NEGATIVE) 03/03/18 23:39 RPR Titer Nonreactive (NONREACTIVE) 03/04/18 07:00 HIV 1&2 Antibody Screen Negative 03/04/18 07:00 HIV P24 Antigen Negative 03/04/18 07:00 lab noted Assessment: 03/05/18 11:26 withdrawal sx Plan: continue detox
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
[2018-03-05] MEDS: THIAMINE HCL 100 MG TABLET (FP) PO SCH (22:13)
[2018-03-05] MEDS: QUEtiapine FUMARATE 50 MG TABLET PO SCH (22:13)
[2018-03-06] MEDS ORDERED: METHADONE HCL 5 MG TABLET (FOR DETOX USE ONLY) PO ONE (10:00)
[2018-03-06] MEDS: PRENATAL VITAMINS W/ FOLIC ACID TABLET (FP) PO SCH (10:28)
[2018-03-06] MEDS: NICOTINE 14 MG/24 HOURS TOPICAL PATCH TD SCH (10:29)
[2018-03-06] MEDS: BUDESONIDE/FORMETEROL FUMARATE 80/4.5 mcg INHALER IH SCH ×2 (10:30→23:08)
[2018-03-06] MEDS: SODIUM CHLORIDE NASAL SPRAY 44 ML BOTTLE NS SCH ×2 (15:10→22:08)
--- NOTE | 2018-03-06 15:14 | PN ---
BHS Progress Note (SOAP) Subjective: stuffy nose body aches tremor sweat restlessness Objective: 03/06/18 15:12 Vital Signs Temperature 96.1 F L 03/06/18 13:31 Pulse Rate 77 03/06/18 13:31 Respiratory Rate 18 03/06/18 13:31 Blood Pressure 124/66 03/06/18 13:31 O2 Sat by Pulse Oximetry (%) Laboratory Last Values WBC 5.3 K/mm3 (4.0-10.0) 03/04/18 07:00 RBC 5.03 M/mm3 (4.00-5.60) 03/04/18 07:00 Hgb 14.7 GM/dL (11.7-16.9) 03/04/18 07:00 Hct 46.0 % (35.4-49) 03/04/18 07:00 MCV 91.4 fl (80-96) 03/04/18 07:00 MCH 29.1 pg (25.7-33.7) 03/04/18 07:00 MCHC 31.9 g/dl (32.0-35.9) L 03/04/18 07:00 RDW 14.7 % (11.9-15.9) 03/04/18 07:00 Plt Count 219 K/MM3 (134-434) 03/04/18 07:00 MPV 8.3 fl (7.5-11.1) 03/04/18 07:00 Sodium 141 mmol/L (136-145) 03/04/18 07:00 Potassium 4.1 mmol/L (3.5-5.1) 03/04/18 07:00 Chloride 108 mmol/L (98-107) H 03/04/18 07:00 Carbon Dioxide 27 mmol/L (21-32) 03/04/18 07:00 Anion Gap 7 MMOL/L (8-16) L 03/04/18 07:00 BUN 14 mg/dL (7-18) 03/04/18 07:00 Creatinine 0.8 mg/dL (0.55-1.3) 03/04/18 07:00 Creat Clearance w eGFR > 60 (>60) 03/04/18 07:00 Random Glucose 91 mg/dL (74-106) 03/04/18 07:00 Calcium 8.1 mg/dL (8.5-10.1) L 03/04/18 07:00 Total Bilirubin 0.4 mg/dL (0.2-1) 03/04/18 07:00 AST 41 U/L (15-37) H 03/04/18 07:00 ALT 45 U/L (13-61) 03/04/18 07:00 Alkaline Phosphatase 71 U/L (45-117) 03/04/18 07:00 Total Protein 6.5 g/dl (6.4-8.2) 03/04/18 07:00 Albumin 3.3 g/dl (3.4-5.0) L 03/04/18 07:00 Urine Color Yellow 03/03/18 23:39 Urine Appearance Slcloudy 03/03/18 23:39 Urine pH 5.0 (5.0-8.0) 12 23:39 Ur Specific [place] 1.032 (1.010-1.035) 03/03/18 23:39 Urine Protein Negative (NEGATIVE) 03/03/18 23:39 Urine Glucose (UA) Negative (NEGATIVE) 03/03/18 23:39 Urine Ketones Negative (NEGATIVE) 03/03/18 23:39 Urine Blood Negative (NEGATIVE) 03/03/18 23:39 Urine Nitrite Negative (NEGATIVE) 03/03/18 23:39 Urine Bilirubin Negative (<2.0 mg/dL) 03/03/18 23:39 Urine Urobilinogen 2.0 mg/dL (0.2-1.0) 12 23:39 Ur Leukocyte Esterase Negative (NEGATIVE) 03/03/18 23:39 RPR Titer Nonreactive (NONREACTIVE) 03/04/18 07:00 HIV 1&2 Antibody Screen Negative 03/04/18 07:00 HIV P24 Antigen Negative 03/04/18 07:00 lab noted Assessment: 03/06/18 15:12 withdrawal sx Plan: continue detox nasal spread
[2018-03-06] MEDS: QUEtiapine FUMARATE 50 MG TABLET PO SCH (22:08)
[2018-03-06] MEDS: THIAMINE HCL 100 MG TABLET (FP) PO SCH (22:08)
[2018-03-07] MEDS: SODIUM CHLORIDE NASAL SPRAY 44 ML BOTTLE NS SCH (05:41)
[2018-03-07 09:33] VITALS: BP 112/67; PULSE 67; TEMP 97.7
[2018-03-07] MEDS ORDERED: METHADONE HCL 10 MG TABLET (FOR DETOX USE ONLY) PO ONE (10:00)
[2018-03-07] MEDS: BUDESONIDE/FORMETEROL FUMARATE 80/4.5 mcg INHALER IH SCH (10:28)
[2018-03-07] MEDS: NICOTINE 14 MG/24 HOURS TOPICAL PATCH TD SCH (10:28)
[2018-03-07] MEDS: PRENATAL VITAMINS W/ FOLIC ACID TABLET (FP) PO SCH (10:28)
--- NOTE | 2018-03-07 13:25 | DS ---
[facility] Detox Discharge Summary Admission Date: 03/03/18 Discharge Date: 03/07/18 - History Present History: Opioid Dependence - Physical Exam Results Vital Signs: Vital Signs Temperature 97.7 F 03/07/18 09:32 Pulse Rate 67 03/07/18 09:32 Respiratory Rate 18 03/07/18 09:32 Blood Pressure 112/67 03/07/18 09:32 O2 Sat by Pulse Oximetry (%) Pertinent Admission Physical Exam Findings: PATIENT CLINICALLY STABLE AND COMPLETED DETOX TODAY. PATIENT TOLERATED DETOX REGIMEN WITHOUT ADVERSE EVENT. DENIES SI/HI. PATIENT ALERT AND ORIENTED X 3, IN NAD. SKIN WARM AND DRY. EXT FULL ROM, NO TREMORS. AMB AD JUNE. PATIENT ACCEPTED REFERRAL TO REHAB AT [facility]. PATIENT ENCOURAGED TO COMPLETE REHAB TO PREVENT RELAPSE. D/C INSTRUCTIONS PROVIDED TO PATIENT BY STAFF. - Medication Discharge Medications: Ambulatory Orders Albuterol Sulfate Inhaler - [Ventolin HFA Inhaler -] 2 inh PO Q4H PRN #1 inhaler 07/16/16 traZODone HCL [Trazodone HCl] 50 mg PO HS 03/03/18
[2018-03-08] MEDS ORDERED: METHADONE HCL 5 MG TABLET (FOR DETOX USE ONLY) PO ONE (06:00)
== END 2018-03-07 14:03 | disposition home or self-care (01) | DRG 773 ==
LOC: YASAS 11:48 → Y3N 16:47
PROC: HZ2ZZZZ Detoxification Services for Substance Abuse Treatment (ICD-10-PCS; principal; 2018-03-03)
DX: F11.23 Opioid dependence with withdrawal (principal); F10.230 Alcohol dependence with withdrawal, uncomplicated; F14.20 Cocaine dependence, uncomplicated; F12.20 Cannabis dependence, uncomplicated; F17.210 Nicotine dependence, cigarettes, uncomplicated; F19.24 Other psychoactive substance dependence with psychoactive substance-induced mood disorder; F20.0 Paranoid schizophrenia; F43.10 Post-traumatic stress disorder, unspecified; I10 Essential (primary) hypertension; J45.20 Mild intermittent asthma, uncomplicated; G47.00 Insomnia, unspecified; Z91.5 Personal history of self-harm; Z88.0 Allergy status to penicillin; Z98.890 Other specified postprocedural states; Z91.19 Patient's noncompliance with other medical treatment and regimen; Z59.0 Homelessness
CPT/HCPCS: 36415; 80053; 81003; 85027; 86593; 87389; J0735

== ENCOUNTER 2018-04-09 09:44 | Inpatient (IN) | payer OTHER ==
[2018-04-09 10:26] VITALS: BMI 25.5
[2018-04-09] MEDS ORDERED: METHADONE HCL 10 MG TABLET (FOR DETOX USE ONLY) PO ONE ×2 (18:00→23:00)
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
[2018-04-09] MEDS ORDERED: MAGNESIUM HYDROX 2400MG/30ML ORAL SUSPENSION 30 ML CUP PO PRN (18:28)
[2018-04-09] MEDS ORDERED: guaiFENesin/D-METHORPHAN HB 10 ML UNIT-DOSE CUPS PO PRN (18:28)
[2018-04-09] MEDS ORDERED: NICOTINE POLACRILEX 4 MG GUM BC PRN (18:28)
[2018-04-09] MEDS ORDERED: P-EPHED 60MG/TRIPROLIDI 2.5MG TABLET PO PRN (18:28)
[2018-04-09] MEDS ORDERED: MAG HYDROX/AL HYDROX/SIMETH 30 ML UNIT-DOSE CUP PO PRN (18:28)
[2018-04-09] MEDS ORDERED: IBUPROFEN 400 MG TABLET (FP) PO PRN (18:28)
[2018-04-09] MEDS ORDERED: MENTHOL/PHENOL 1 EACH UD MM PRN (18:28)
[2018-04-09] MEDS ORDERED: LOPERAMIDE HCL 2 MG CAPSULE PO PRN (18:28)
[2018-04-09] MEDS ORDERED: MAGNESIUM CITRATE 300 ML BOTTLE PO PRN (18:28)
[2018-04-09] MEDS ORDERED: hydrOXYzine PAMOATE 25 MG CAPSULE (FP) PO PRN (18:28)
[2018-04-09] MEDS ORDERED: ACETAMINOPHEN 325 MG TABLET (FP) PO PRN (18:28)
[2018-04-09] MEDS ORDERED: ALBUTEROL SO4 8 GM HFA INHALER IH PRN (18:32)
[2018-04-09] MEDS: diazePAM 5 MG TABLET PO PRN (19:21)
[2018-04-09] MEDS: THIAMINE HCL 100 MG TABLET (FP) PO SCH (23:42)
[2018-04-10] MEDS: diazePAM 5 MG TABLET PO PRN ×3 (05:37→20:42)
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
[2018-04-10] MEDS ORDERED: METHADONE HCL 10 MG TABLET (FOR DETOX USE ONLY) PO ONE (10:00)
[2018-04-10] MEDS: PRENATAL VITAMINS W/ FOLIC ACID TABLET (FP) PO SCH (10:15)
[2018-04-10] MEDS: NICOTINE 21 MG/24 HOURS TOPICAL PATCH TD SCH (10:16)
[2018-04-10 10:17] LABS: HEMATOCRIT 42.2 % (35.4-49); HEMOGLOBIN 14.6 GM/dL (11.7-16.9); MCH 30.7 pg (25.7-33.7); MCHC 34.6 g/dl (32.0-35.9); MEAN CELL VOLUME 88.9 fl (80-96); MEAN PLT VOLUME 8.1 fl (7.5-11.1); PLATELET COUNT 221 K/MM3 (134-434); RBC 4.74 M/mm3 (4.00-5.60); RDW 13.3 % (11.9-15.9); WHITE BLOOD COUNT 3.3 K/mm3 (4.0-10.0)
[2018-04-10 10:28] LABS: ALBUMIN 3.2 g/dl (3.4-5.0); ALK PHOS 65 U/L (45-117); ANION GAP 6 MMOL/L (8-16); BILIRUBIN,TOTAL 0.4 mg/dL (0.2-1); BLOOD UREA NITROGEN 14 mg/dL (7-18); CALCIUM 8.4 mg/dL (8.5-10.1); CHLORIDE 105 mmol/L (98-107); CO2 30 mmol/L (21-32); CREATININE 0.8 mg/dL (0.55-1.3); GLUCOSE,RANDOM 87 mg/dL (74-106); POTASSIUM 3.9 mmol/L (3.5-5.1); SGOT/AST 21 U/L (15-37); SGPT/ALT 32 U/L (13-61); SODIUM 141 mmol/L (136-145); TOT PROT 6.1 g/dl (6.4-8.2)
--- NOTE | 2018-04-10 11:16 | PN ---
BHS COWS - Scale Resting Pulse: 0= [place] 80 or Below Sweatin=Flushed/Facial Moisture Restless Observation: 1= Difficult to Sit Still Pupil Size: 0= Normal to Room Light Bone or Joint Aches: 2= Severe Diffuse Aches Runny Nose/ Eye Tearin= Runny Nose/Eyes GI Upset > 30mins: 1= Stomach Cramp Tremor Observation of Outstretched Hands: 2= Slight Tremor Visible Yawning Observation: 2= >3x During Session Anxiety or Irritability: 2=Irritable/Anxious Goose Flesh Skin: 0=Smooth Skin COWS Score: 14 BHS Progress Note (SOAP) Subjective: body aches sweats shakes interrupted sleep irritable agitation Objective: 04/10/18 11:15 Vital Signs Temperature 96.8 F L 04/10/18 09:27 Pulse Rate 70 04/10/18 09:27 Respiratory Rate 18 04/10/18 09:27 Blood Pressure 141/79 04/10/18 09:27 O2 Sat by Pulse Oximetry (%) Laboratory Tests 04/10/18 04/10/18 07:00 07:00 WBC 3.3 L RBC 4.74 Hgb 14.6 Hct 42.2 MCV 88.9 MCH 30.7 MCHC 34.6 RDW 13.3 Plt Count 221 MPV 8.1 Sodium 141 Potassium 3.9 Chloride 105 Carbon Dioxide 30 Anion Gap 6 L BUN 14 Creatinine 0.8 Creat Clearance w eGFR > 60 Random Glucose 87 Calcium 8.4 L Total Bilirubin 0.4 AST 21 ALT 32 Alkaline Phosphatase 65 Total Protein 6.1 L Albumin 3.2 L aaox3 ambulating no acute distress Assessment: 04/10/18 11:15 withdrawal sx Plan: continue detox increase fluids
[2018-04-10] MEDS: THIAMINE HCL 100 MG TABLET (FP) PO SCH (22:40)
[2018-04-11] MEDS ORDERED: METHADONE HCL 5 MG TABLET (FOR DETOX USE ONLY) PO ONE (10:00)
[2018-04-11] MEDS: diazePAM 5 MG TABLET PO PRN ×2 (10:25→22:30)
[2018-04-11] MEDS: PRENATAL VITAMINS W/ FOLIC ACID TABLET (FP) PO SCH (10:25)
[2018-04-11] MEDS: NICOTINE 21 MG/24 HOURS TOPICAL PATCH TD SCH (10:25)
--- NOTE | 2018-04-11 10:34 | PN ---
BHS COWS - Scale Resting Pulse: 0= [place] 80 or Below Sweatin=Flushed/Facial Moisture Restless Observation: 1= Difficult to Sit Still Pupil Size: 0= Normal to Room Light Bone or Joint Aches: 1= Mild Discomfort Runny Nose/ Eye Tearin= Nasal Congestion GI Upset > 30mins: 0= None Tremor Observation of Outstretched Hands: 2= Slight Tremor Visible Yawning Observation: 2= >3x During Session Anxiety or Irritability: 2=Irritable/Anxious Goose Flesh Skin: 0=Smooth Skin COWS Score: 11 BHS Progress Note (SOAP) Subjective: agitation sweats interrupted sleep Objective: 04/11/18 10:32 Vital Signs Temperature 97.7 F 04/11/18 09:49 Pulse Rate 71 04/11/18 09:49 Respiratory Rate 18 04/11/18 09:49 Blood Pressure 131/69 04/11/18 09:49 O2 Sat by Pulse Oximetry (%) Laboratory Tests 04/10/18 04/10/18 07:00 07:00 WBC 3.3 L RBC 4.74 Hgb 14.6 Hct 42.2 MCV 88.9 MCH 30.7 MCHC 34.6 RDW 13.3 Plt Count 221 MPV 8.1 Sodium 141 Potassium 3.9 Chloride 105 Carbon Dioxide 30 Anion Gap 6 L BUN 14 Creatinine 0.8 Creat Clearance w eGFR > 60 Random Glucose 87 Calcium 8.4 L Total Bilirubin 0.4 AST 21 ALT 32 Alkaline Phosphatase 65 Total Protein 6.1 L Albumin 3.2 L aaox3 ambulating no acute distress Assessment: 04/11/18 10:34 withdrawal sx Plan: continue detox increase fluids
--- NOTE | 2018-04-11 11:37 | EKG ---
Test Reason : Blood Pressure : / mmHG Vent. Rate : 060 BPM Atrial Rate : 060 BPM P-R Int : 160 ms QRS Dur : 088 ms QT Int : 406 ms P-R-T Axes : -16 -37 -05 degrees QTc Int : 406 ms NORMAL SINUS RHYTHM LEFT AXIS DEVIATION ABNORMAL ECG WHEN COMPARED WITH ECG OF 11-JUL-2016 14:03, NO SIGNIFICANT CHANGE WAS FOUND Confirmed by SABINO DURÁN, ILIANA ([id number]) on 04/11/2018 11:37:03 AM Referred By: Confirmed By:ILIANA GALLO MD
[2018-04-11] MEDS: THIAMINE HCL 100 MG TABLET (FP) PO SCH (22:30)
--- NOTE | 2018-04-12 09:56 | PN ---
BHS Progress Note (SOAP) Subjective: Mild discomfort including tremors and sweats Objective: 04/12/18 09:54 Vital Signs - 8 hr 04/12/18 04/12/18 07:50 09:33 Temperature 97.7 F 97.7 F Pulse Rate 57 L 64 Respiratory 18 18 Rate Blood Pressure 132/69 112/57 L Laboratory Last Values WBC 3.3 K/mm3 (4.0-10.0) L 04/10/18 07:00 RBC 4.74 M/mm3 (4.00-5.60) 04/10/18 07:00 Hgb 14.6 GM/dL (11.7-16.9) 04/10/18 07:00 Hct 42.2 % (35.4-49) 04/10/18 07:00 MCV 88.9 fl (80-96) 04/10/18 07:00 MCH 30.7 pg (25.7-33.7) 04/10/18 07:00 MCHC 34.6 g/dl (32.0-35.9) 04/10/18 07:00 RDW 13.3 % (11.9-15.9) 04/10/18 07:00 Plt Count 221 K/MM3 (134-434) 04/10/18 07:00 MPV 8.1 fl (7.5-11.1) 04/10/18 07:00 Sodium 141 mmol/L (136-145) 04/10/18 07:00 Potassium 3.9 mmol/L (3.5-5.1) 04/10/18 07:00 Chloride 105 mmol/L (98-107) 04/10/18 07:00 Carbon Dioxide 30 mmol/L (21-32) 04/10/18 07:00 Anion Gap 6 MMOL/L (8-16) L 04/10/18 07:00 BUN 14 mg/dL (7-18) 04/10/18 07:00 Creatinine 0.8 mg/dL (0.55-1.3) 04/10/18 07:00 Creat Clearance w eGFR > 60 (>60) 04/10/18 07:00 Random Glucose 87 mg/dL (74-106) 04/10/18 07:00 Calcium 8.4 mg/dL (8.5-10.1) L 04/10/18 07:00 Total Bilirubin 0.4 mg/dL (0.2-1) 04/10/18 07:00 AST 21 U/L (15-37) 04/10/18 07:00 ALT 32 U/L (13-61) 04/10/18 07:00 Alkaline Phosphatase 65 U/L (45-117) 04/10/18 07:00 Total Protein 6.1 g/dl (6.4-8.2) L 04/10/18 07:00 Albumin 3.2 g/dl (3.4-5.0) L 04/10/18 07:00 RPR Titer Nonreactive (NONREACTIVE) 04/10/18 07:00 Labs noted Assessment: 04/12/18 09:55 Withdrawal sx Plan: Continue detox
[2018-04-12] MEDS ORDERED: METHADONE HCL 5 MG TABLET (FOR DETOX USE ONLY) PO ONE (10:00)
[2018-04-12] MEDS: diazePAM 5 MG TABLET PO PRN ×2 (10:05→16:35)
[2018-04-12] MEDS: PRENATAL VITAMINS W/ FOLIC ACID TABLET (FP) PO SCH (10:06)
[2018-04-12] MEDS: NICOTINE 21 MG/24 HOURS TOPICAL PATCH TD SCH (10:06)
[2018-04-12] MEDS: THIAMINE HCL 100 MG TABLET (FP) PO SCH (22:21)
[2018-04-12] MEDS: MELATONIN 5 MG TABLETS PO PRN (22:21)
--- NOTE | 2018-04-13 09:40 | PN ---
BHS Progress Note (SOAP) Subjective: feeling better less body aches mild tremor sleep better at night Objective: 04/13/18 15:59 Vital Signs Temperature 97.7 F 04/13/18 14:11 Pulse Rate 71 04/13/18 14:11 Respiratory Rate 16 04/13/18 14:11 Blood Pressure 119/60 04/13/18 14:11 O2 Sat by Pulse Oximetry (%) Laboratory Last Values WBC 3.3 K/mm3 (4.0-10.0) L 04/10/18 07:00 RBC 4.74 M/mm3 (4.00-5.60) 04/10/18 07:00 Hgb 14.6 GM/dL (11.7-16.9) 04/10/18 07:00 Hct 42.2 % (35.4-49) 04/10/18 07:00 MCV 88.9 fl (80-96) 04/10/18 07:00 MCH 30.7 pg (25.7-33.7) 04/10/18 07:00 MCHC 34.6 g/dl (32.0-35.9) 04/10/18 07:00 RDW 13.3 % (11.9-15.9) 04/10/18 07:00 Plt Count 221 K/MM3 (134-434) 04/10/18 07:00 MPV 8.1 fl (7.5-11.1) 04/10/18 07:00 Sodium 141 mmol/L (136-145) 04/10/18 07:00 Potassium 3.9 mmol/L (3.5-5.1) 04/10/18 07:00 Chloride 105 mmol/L (98-107) 04/10/18 07:00 Carbon Dioxide 30 mmol/L (21-32) 04/10/18 07:00 Anion Gap 6 MMOL/L (8-16) L 04/10/18 07:00 BUN 14 mg/dL (7-18) 04/10/18 07:00 Creatinine 0.8 mg/dL (0.55-1.3) 04/10/18 07:00 Creat Clearance w eGFR > 60 (>60) 04/10/18 07:00 Random Glucose 87 mg/dL (74-106) 04/10/18 07:00 Calcium 8.4 mg/dL (8.5-10.1) L 04/10/18 07:00 Total Bilirubin 0.4 mg/dL (0.2-1) 04/10/18 07:00 AST 21 U/L (15-37) 04/10/18 07:00 ALT 32 U/L (13-61) 04/10/18 07:00 Alkaline Phosphatase 65 U/L (45-117) 04/10/18 07:00 Total Protein 6.1 g/dl (6.4-8.2) L 04/10/18 07:00 Albumin 3.2 g/dl (3.4-5.0) L 04/10/18 07:00 RPR Titer Nonreactive (NONREACTIVE) 04/10/18 07:00 lab noted Assessment: 04/13/18 15:59 withdrawal sx Plan: continue detox
[2018-04-13] MEDS ORDERED: METHADONE HCL 10 MG TABLET (FOR DETOX USE ONLY) PO ONE (10:00)
[2018-04-13] MEDS: PRENATAL VITAMINS W/ FOLIC ACID TABLET (FP) PO SCH (10:14)
[2018-04-13] MEDS: NICOTINE 21 MG/24 HOURS TOPICAL PATCH TD SCH (10:15)
[2018-04-13] MEDS: THIAMINE HCL 100 MG TABLET (FP) PO SCH (22:37)
[2018-04-13] MEDS: MELATONIN 5 MG TABLETS PO PRN (22:37)
[2018-04-14] MEDS ORDERED: METHADONE HCL 5 MG TABLET (FOR DETOX USE ONLY) PO ONE (06:00)
[2018-04-14 07:42] VITALS: BP 136/93; PULSE 58; TEMP 97.7
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
== END 2018-04-14 09:03 | disposition home or self-care (01) | DRG 773 ==
LOC: YASAS 09:44 → Y6N 18:27
PROVIDERS: ADMIT Neuromusculoskeletal Medicine & OMM; ATTEND Neuromusculoskeletal Medicine & OMM
PROC: HZ2ZZZZ Detoxification Services for Substance Abuse Treatment (ICD-10-PCS; principal; 2018-04-09)
DX: F11.23 Opioid dependence with withdrawal (principal); F14.20 Cocaine dependence, uncomplicated; F12.20 Cannabis dependence, uncomplicated; F16.10 Hallucinogen abuse, uncomplicated; F17.210 Nicotine dependence, cigarettes, uncomplicated; F19.24 Other psychoactive substance dependence with psychoactive substance-induced mood disorder; F32.9 Major depressive disorder, single episode, unspecified; F43.10 Post-traumatic stress disorder, unspecified; J45.20 Mild intermittent asthma, uncomplicated; G47.00 Insomnia, unspecified; Z91.14 Patient's other noncompliance with medication regimen; Z88.0 Allergy status to penicillin; Z91.5 Personal history of self-harm
CPT/HCPCS: 36415; 80053; 85027; 86593; 93005; 93010

== ENCOUNTER 2018-05-19 12:04 | Inpatient (IN) | payer OTHER ==
[2018-05-19 13:16] VITALS: BMI 26.7
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
[2018-05-19] MEDS ORDERED: ALBUTEROL SO4 8 GM HFA INHALER IH PRN (15:59)
[2018-05-19] MEDS ORDERED: P-EPHED 60MG/TRIPROLIDI 2.5MG TABLET PO PRN (16:06)
[2018-05-19] MEDS ORDERED: IBUPROFEN 400 MG TABLET (FP) PO PRN (16:06)
[2018-05-19] MEDS ORDERED: METHADONE HCL 10 MG TABLET (FOR DETOX USE ONLY) PO ONE ×2 (16:06→23:00)
[2018-05-19] MEDS ORDERED: LOPERAMIDE HCL 2 MG CAPSULE PO PRN (16:06)
[2018-05-19] MEDS ORDERED: chlordiazePOXIDE HCL 25 MG CAPSULE PO PRN (16:06)
[2018-05-19] MEDS ORDERED: MAGNESIUM HYDROX 2400MG/30ML ORAL SUSPENSION 30 ML CUP PO PRN (16:06)
[2018-05-19] MEDS ORDERED: MAGNESIUM CITRATE 300 ML BOTTLE PO PRN (16:06)
[2018-05-19] MEDS ORDERED: NICOTINE POLACRILEX 2 MG GUM BC PRN (16:06)
[2018-05-19] MEDS ORDERED: ACETAMINOPHEN 325 MG TABLET (FP) PO PRN (16:06)
[2018-05-19] MEDS ORDERED: MENTHOL/PHENOL 1 EACH UD MM PRN (16:06)
[2018-05-19] MEDS ORDERED: MAG HYDROX/AL HYDROX/SIMETH 30 ML UNIT-DOSE CUP PO PRN (16:06)
[2018-05-19] MEDS ORDERED: guaiFENesin/D-METHORPHAN HB 10 ML UNIT-DOSE CUPS PO PRN (16:06)
[2018-05-19] MEDS: THIAMINE HCL 100 MG TABLET (FP) PO SCH (22:43)
[2018-05-19] MEDS: chlordiazePOXIDE HCL 25 MG CAPSULE PO SCH (22:43)
[2018-05-20] MEDS: chlordiazePOXIDE HCL 25 MG CAPSULE PO SCH ×4 (05:57→22:37)
[2018-05-20] MEDS ORDERED: METHADONE HCL 10 MG TABLET (FOR DETOX USE ONLY) PO SCH (10:00)
[2018-05-20] MEDS: PRENATAL VITAMINS W/ FOLIC ACID TABLET (FP) PO SCH (10:44)
[2018-05-20] MEDS: NICOTINE 21 MG/24 HOURS TOPICAL PATCH TD SCH (10:46)
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
--- NOTE | 2018-05-20 11:44 | PN ---
S CIWA - CIWA Score Nausea/Vomitin-No Nausea/No Vomiting Muscle Tremors: 4-Moderate,w/Arms Extend Anxiety: 2 Agitation: 0-Normal Activity Paroxysmal Sweats: 3 Orientation: 0-Oriented Tacttile Disturbances: 0-None Auditory Disturbances: 1-Very Mild Visual Disturbances: 2-Mild Sensitivity Headache: 0-None Present CIWA-Ar Total Score: 12 BHS COWS - Scale Resting Pulse: 0= MA 80 or Below Sweatin= Chills/Flushing Restless Observation: 0= Sits Still Pupil Size: 0= Normal to Room Light Bone or Joint Aches: 2= Severe Diffuse Aches Runny Nose/ Eye Tearin= Runny Nose/Eyes GI Upset > 30mins: 0= None Tremor Observation of Outstretched Hands: 2= Slight Tremor Visible Yawning Observation: 1= 1-2x During Session Anxiety or Irritability: 2=Irritable/Anxious Goose Flesh Skin: 0=Smooth Skin COWS Score: 10 BHS Progress Note (SOAP) Subjective: Sweating, Body Aches, Tremors. Objective: PATIENT A & O X 3, OBSERVED AMBULATING ON UNIT. IN NO ACUTE DISTRESS. 05/20/18 11:43 Vital Signs Temperature 97.7 F 05/20/18 09:43 Pulse Rate 74 05/20/18 09:43 Respiratory Rate 18 05/20/18 09:43 Blood Pressure 146/92 05/20/18 09:43 O2 Sat by Pulse Oximetry (%) ADMISSION LAB RESULTS PENDING. Assessment: 05/20/18 11:44 WITHDRAWAL SYMPTOMS. ELEVATED BLOOD PRESSURE. Plan: CONTINUE DETOX. INCREASE DAILY PO FLUID INTAKE.
[2018-05-20 12:41] LABS: HEMOGLOBIN 14.7 GM/dL (11.7-16.9); MCH 30.5 pg (25.7-33.7); MCHC 34.2 g/dl (32.0-35.9); MEAN CELL VOLUME 88.9 fl (80-96); MEAN PLT VOLUME 7.8 fl (7.5-11.1); PLATELET COUNT 267 K/MM3 (134-434); RBC 4.83 M/mm3 (4.00-5.60); RDW 13.4 % (11.9-15.9); WHITE BLOOD COUNT 6.5 K/mm3 (4.0-10.0)
[2018-05-20 12:49] LABS: ALBUMIN 3.2 g/dl (3.4-5.0); ALK PHOS 86 U/L (45-117); ANION GAP 5 MMOL/L (8-16); BILIRUBIN,TOTAL 0.5 mg/dL (0.2-1); BLOOD UREA NITROGEN 15 mg/dL (7-18); CALCIUM 8.2 mg/dL (8.5-10.1); CHLORIDE 105 mmol/L (98-107); CO2 29 mmol/L (21-32); CREATININE 0.8 mg/dL (0.55-1.3); GLUCOSE,RANDOM 80 mg/dL (74-106); POTASSIUM 4.2 mmol/L (3.5-5.1); SGOT/AST 22 U/L (15-37); SGPT/ALT 25 U/L (13-61); SODIUM 139 mmol/L (136-145); TOT PROT 6.7 g/dl (6.4-8.2)
[2018-05-20] MEDS: METHYL SALICYLATE/MENTHOL OINT 30 GM TUBE TP SCH ×2 (13:25→22:37)
[2018-05-20] MEDS: QUEtiapine FUMARATE 100 MG TABLET (FP) PO SCH (22:37)
[2018-05-20] MEDS: THIAMINE HCL 100 MG TABLET (FP) PO SCH (22:38)
[2018-05-20] MEDS: MELATONIN 5 MG TABLETS PO PRN (22:38)
[2018-05-21] MEDS: chlordiazePOXIDE HCL 25 MG CAPSULE PO SCH ×3 (06:00→18:00)
[2018-05-21] MEDS: NICOTINE 21 MG/24 HOURS TOPICAL PATCH TD SCH (10:41)
[2018-05-21] MEDS: METHADONE HCL 5 MG TABLET (FOR DETOX USE ONLY) PO SCH (10:41)
[2018-05-21] MEDS: METHYL SALICYLATE/MENTHOL OINT 30 GM TUBE TP SCH ×2 (10:41→22:16)
[2018-05-21] MEDS: PRENATAL VITAMINS W/ FOLIC ACID TABLET (FP) PO SCH (10:41)
[2018-05-21] MEDS ORDERED: CYCLOBENZAPRINE HCL 10 MG TABLET (FP) PO PRN (15:10)
--- NOTE | 2018-05-21 15:11 | PN ---
S CIWA - CIWA Score Nausea/Vomitin-No Nausea/No Vomiting Muscle Tremors: 3 Anxiety: 3 Agitation: 1-Slight > Activity Paroxysmal Sweats: 3 Orientation: 0-Oriented Tacttile Disturbances: 2-Mild Itch/Numbness/Burn Auditory Disturbances: 0-None Visual Disturbances: 1-Very Mild Sensitivity Headache: 0-None Present CIWA-Ar Total Score: 13 BHS COWS - Scale Resting Pulse: 1= CA 81-100 Sweatin= Chills/Flushing Restless Observation: 1= Difficult to Sit Still Pupil Size: 0= Normal to Room Light Bone or Joint Aches: 2= Severe Diffuse Aches Runny Nose/ Eye Tearin= None GI Upset > 30mins: 0= None Tremor Observation of Outstretched Hands: 2= Slight Tremor Visible Yawning Observation: 1= 1-2x During Session Anxiety or Irritability: 2=Irritable/Anxious Goose Flesh Skin: 0=Smooth Skin COWS Score: 10 BHS Progress Note (SOAP) Subjective: Tremors, Sweating, Body Aches. Objective: PATIENT A & O X 3. IN NO ACUTE DISTRESS. 05/21/18 15:08 Vital Signs Temperature 97.6 F 05/21/18 13:26 Pulse Rate 89 05/21/18 13:26 Respiratory Rate 18 05/21/18 13:26 Blood Pressure 106/71 05/21/18 13:26 O2 Sat by Pulse Oximetry (%) Laboratory Tests 05/20/18 05/20/18 05/20/18 07:00 07:00 07:00 WBC 6.5 RBC 4.83 Hgb 14.7 Hct 43.0 MCV 88.9 MCH 30.5 MCHC 34.2 RDW 13.4 Plt Count 267 D MPV 7.8 Sodium 139 Potassium 4.2 Chloride 105 Carbon Dioxide 29 Anion Gap 5 L BUN 15 Creatinine 0.8 Creat Clearance w eGFR > 60 Random Glucose 80 Calcium 8.2 L Total Bilirubin 0.5 AST 22 ALT 25 Alkaline Phosphatase 86 Total Protein 6.7 Albumin 3.2 L RPR Titer Nonreactive LABS NOTED. Assessment: 05/21/18 15:08 WITHDRAWAL SYMPTOMS. Plan: CONTINUE DETOX. PRN FLEXERIL PO FOR BODY ACHES/ MUSCLE SPASMS. TOPICAL BARAK-PALMER FOR LOWER BACK PAIN.
[2018-05-21] MEDS: THIAMINE HCL 100 MG TABLET (FP) PO SCH (22:15)
[2018-05-21] MEDS: QUEtiapine FUMARATE 100 MG TABLET (FP) PO SCH (22:15)
[2018-05-21] MEDS: chlordiazePOXIDE 5 MG CAPSULE PO SCH (22:16)
[2018-05-21] MEDS: MELATONIN 5 MG TABLETS PO PRN (22:16)
[2018-05-22] MEDS: chlordiazePOXIDE 5 MG CAPSULE PO SCH ×3 (06:04→17:35)
[2018-05-22] MEDS: PRENATAL VITAMINS W/ FOLIC ACID TABLET (FP) PO SCH (10:39)
[2018-05-22] MEDS: METHYL SALICYLATE/MENTHOL OINT 30 GM TUBE TP SCH ×2 (10:40→22:45)
[2018-05-22] MEDS: METHADONE HCL 5 MG TABLET (FOR DETOX USE ONLY) PO SCH (10:40)
[2018-05-22] MEDS: NICOTINE 21 MG/24 HOURS TOPICAL PATCH TD SCH (10:40)
--- NOTE | 2018-05-22 16:51 | PN ---
BHS Progress Note (SOAP) Subjective: Sweating, Body Aches, Fatigue. Objective: PATIENT A & O X 3. IN NO ACUTE DISTRESS. 05/22/18 16:50 Vital Signs Temperature 97.5 F L 05/22/18 13:45 Pulse Rate 80 05/22/18 13:45 Respiratory Rate 18 05/22/18 13:45 Blood Pressure 105/62 05/22/18 13:45 O2 Sat by Pulse Oximetry (%) Laboratory Tests 05/20/18 05/20/18 05/20/18 07:00 07:00 07:00 WBC 6.5 RBC 4.83 Hgb 14.7 Hct 43.0 MCV 88.9 MCH 30.5 MCHC 34.2 RDW 13.4 Plt Count 267 D MPV 7.8 Sodium 139 Potassium 4.2 Chloride 105 Carbon Dioxide 29 Anion Gap 5 L BUN 15 Creatinine 0.8 Creat Clearance w eGFR > 60 Random Glucose 80 Calcium 8.2 L Total Bilirubin 0.5 AST 22 ALT 25 Alkaline Phosphatase 86 Total Protein 6.7 Albumin 3.2 L RPR Titer Nonreactive LABS NOTED. Assessment: 05/22/18 16:50 WITHDRAWAL SYMPTOMS. Plan: CONTINUE DETOX. INCREASE DAILY PO FLUID INTAKE. ENCOURAGE AMBULATION.
[2018-05-22] MEDS: chlordiazePOXIDE HCL 10 MG CAPSULE PO SCH (22:44)
[2018-05-22] MEDS: QUEtiapine FUMARATE 100 MG TABLET (FP) PO SCH (22:45)
[2018-05-22] MEDS: THIAMINE HCL 100 MG TABLET (FP) PO SCH (22:45)
[2018-05-23] MEDS: chlordiazePOXIDE HCL 10 MG CAPSULE PO SCH ×3 (06:40→17:22)
[2018-05-23] MEDS ORDERED: METHADONE HCL 10 MG TABLET (FOR DETOX USE ONLY) PO SCH (10:00)
[2018-05-23] MEDS: PRENATAL VITAMINS W/ FOLIC ACID TABLET (FP) PO SCH (10:35)
[2018-05-23] MEDS: NICOTINE 21 MG/24 HOURS TOPICAL PATCH TD SCH (10:35)
[2018-05-23] MEDS: METHYL SALICYLATE/MENTHOL OINT 30 GM TUBE TP SCH ×2 (10:36→22:35)
--- NOTE | 2018-05-23 15:59 | PN ---
BHS Progress Note (SOAP) Subjective: Fatigue, Sweating. Objective: PATIENT A & O X 3, OBSERVED AMBULATING ON UNIT. IN NO ACUTE DISTRESS. 05/23/18 15:57 Vital Signs Temperature 97.0 F L 05/23/18 13:37 Pulse Rate 85 05/23/18 13:37 Respiratory Rate 18 05/23/18 13:37 Blood Pressure 116/68 05/23/18 13:37 O2 Sat by Pulse Oximetry (%) Laboratory Tests 05/20/18 05/20/18 05/20/18 07:00 07:00 07:00 WBC 6.5 RBC 4.83 Hgb 14.7 Hct 43.0 MCV 88.9 MCH 30.5 MCHC 34.2 RDW 13.4 Plt Count 267 D MPV 7.8 Sodium 139 Potassium 4.2 Chloride 105 Carbon Dioxide 29 Anion Gap 5 L BUN 15 Creatinine 0.8 Creat Clearance w eGFR > 60 Random Glucose 80 Calcium 8.2 L Total Bilirubin 0.5 AST 22 ALT 25 Alkaline Phosphatase 86 Total Protein 6.7 Albumin 3.2 L RPR Titer Nonreactive LABS NOTED. Assessment: 05/23/18 15:58 WITHDRAWAL SYMPTOMS. Plan: CONTINUE DETOX. PATIENT SCHEDULED FOR D/C TOMORROW.
[2018-05-23] MEDS: QUEtiapine FUMARATE 100 MG TABLET (FP) PO SCH (22:34)
[2018-05-23] MEDS: THIAMINE HCL 100 MG TABLET (FP) PO SCH (22:34)
[2018-05-24] MEDS ORDERED: METHADONE HCL 5 MG TABLET (FOR DETOX USE ONLY) PO SCH (06:00)
[2018-05-24 06:40] VITALS: BP 124/64; PULSE 74; TEMP 97.3
--- NOTE | 2018-05-24 16:13 | DS ---
[facility] Detox Discharge Summary Admission Date: 05/19/18 Discharge Date: 05/24/18 - History Present History: Alcohol Dependence, Cannabis Dependence, Cocaine Dependence, Opioid Dependence Additional Comments: PATIENT DECLINES AFTERCARE REFERRAL A THIS TIME. PATIENT ADVISED TO CONSIDER LOCAL 12-CIRILO / NA / AA OUTPATIENT SUPPORT GROUPS PROGRAM FOR AFTERCARE. PATIENT VERBALIZED UNDERSTANDING OF RECOMMENDATION. PATIENT WAS DISCHARGED FROM DETOX UNIT IN STABLE MEDICAL CONDITION. Pertinent Past History: Asthma, Depression, (Paranoid) Schizophrenia, Weight Loss, Nicotine Dependence, Insomnia. - Physical Exam Results Vital Signs: Vital Signs Temperature 97.3 F L 05/24/18 06:39 Pulse Rate 74 05/24/18 06:39 Respiratory Rate 18 05/24/18 06:39 Blood Pressure 124/64 05/24/18 06:39 O2 Sat by Pulse Oximetry (%) Pertinent Admission Physical Exam Findings: WITHDRAWAL SYMPTOMS. Laboratory Tests 05/20/18 05/20/18 05/20/18 07:00 07:00 07:00 WBC 6.5 RBC 4.83 Hgb 14.7 Hct 43.0 MCV 88.9 MCH 30.5 MCHC 34.2 RDW 13.4 Plt Count 267 D MPV 7.8 Sodium 139 Potassium 4.2 Chloride 105 Carbon Dioxide 29 Anion Gap 5 L BUN 15 Creatinine 0.8 Creat Clearance w eGFR > 60 Random Glucose 80 Calcium 8.2 L Total Bilirubin 0.5 AST 22 ALT 25 Alkaline Phosphatase 86 Total Protein 6.7 Albumin 3.2 L RPR Titer Nonreactive LABS NOTED. - Treatment Hospital Course: Detox Protocol Followed, Detoxed Safely, Responded well, Discharged Condition Good Patient has Accepted a Rehab Referral to: PT. DECLINES REFERRAL, ADVISED TO CONSIDER LOCAL 12-STEP/AA/NA OP PROGRAM. - Medication Discharge Medications: Ambulatory Orders traZODone HCL [Trazodone HCl] 50 mg PO HS 03/03/18 Naloxone HCl [Narcan] 4 mg NS ASDIR PRN 05/20/18 Albuterol Sulfate Inhaler - [Ventolin HFA Inhaler -] 2 inh PO Q4H PRN #1 inhaler 05/23/18 - Diagnosis (1) Alcohol dependence with uncomplicated withdrawal Status: Acute (2) Opioid dependence with withdrawal Status: Acute (3) Weight loss Status: Acute (4) Asthma Status: Chronic Qualifiers: Asthma severity: mild Asthma persistence: intermittent Asthma complication type: uncomplicated Qualified Code(s): J45.20 - Mild intermittent asthma, uncomplicated (5) Cannabis dependence Status: Chronic (6) Cocaine dependence Status: Chronic Qualifiers: Substance use status: uncomplicated Qualified Code(s): F14.20 - Cocaine dependence, uncomplicated (7) Nicotine dependence Status: Chronic Qualifiers: Nicotine product type: cigarettes Substance use status: uncomplicated Qualified Code(s): F17.210 - Nicotine dependence, cigarettes, uncomplicated (8) Substance induced mood disorder Status: Acute (9) Insomnia Status: Chronic Qualifiers: Insomnia type: unspecified Qualified Code(s): G47.00 - Insomnia, unspecified (10) Non-compliant patient Status: Chronic - AMA Did Patient Leave Against Medical Advice: No
== END 2018-05-24 08:50 | disposition home or self-care (01) | DRG 773 ==
LOC: YASAS 12:04 → Y3N 16:24
PROVIDERS: ADMIT Surgery; ATTEND Surgery
PROC: HZ2ZZZZ Detoxification Services for Substance Abuse Treatment (ICD-10-PCS; principal; 2018-05-19)
DX: F11.23 Opioid dependence with withdrawal (principal); F10.230 Alcohol dependence with withdrawal, uncomplicated; F14.20 Cocaine dependence, uncomplicated; F12.20 Cannabis dependence, uncomplicated; F17.210 Nicotine dependence, cigarettes, uncomplicated; F19.24 Other psychoactive substance dependence with psychoactive substance-induced mood disorder; J45.20 Mild intermittent asthma, uncomplicated; G47.00 Insomnia, unspecified; R03.0 Elevated blood-pressure reading, without diagnosis of hypertension; Z91.19 Patient's noncompliance with other medical treatment and regimen; Z88.0 Allergy status to penicillin; Z91.5 Personal history of self-harm
CPT/HCPCS: 36415; 80053; 85027; 86593

== ENCOUNTER 2018-08-08 09:57 | Inpatient (IN) | payer OTHER ==
[2018-08-08 10:54] VITALS: BMI 27.0
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
[2018-08-08] MEDS ORDERED: cloNIDine HCL 0.1 MG TABLET PO PRN (12:29)
[2018-08-08] MEDS ORDERED: chlordiazePOXIDE HCL 25 MG CAPSULE PO PRN (12:37)
[2018-08-08] MEDS ORDERED: NICOTINE POLACRILEX 2 MG GUM BUC PRN (12:38)
[2018-08-08] MEDS ORDERED: MAG HYDROX/AL HYDROX/SIMETH 30 ML UNIT-DOSE CUP PO PRN (12:38)
[2018-08-08] MEDS ORDERED: MAGNESIUM CITRATE 300 ML BOTTLE PO PRN (12:38)
[2018-08-08] MEDS ORDERED: MAGNESIUM HYDROX 2400MG/30ML ORAL SUSPENSION 30 ML CUP PO PRN (12:38)
[2018-08-08] MEDS ORDERED: MENTHOL/PHENOL 1 EACH UD MM PRN (12:38)
[2018-08-08] MEDS ORDERED: hydrOXYzine PAMOATE 25 MG CAPSULE (FP) PO PRN (12:38)
[2018-08-08] MEDS ORDERED: BISMUTH SUBSALICYLATE 262 MG/15 ML BTL PO PRN (12:38)
[2018-08-08] MEDS ORDERED: IBUPROFEN 400 MG TABLET (FP) PO PRN (12:38)
[2018-08-08] MEDS ORDERED: ACETAMINOPHEN 325 MG TABLET (FP) PO PRN ×2 (12:38)
[2018-08-08] MEDS ORDERED: METHOCARBAMOL 500 MG TABLET PO PRN (12:38)
[2018-08-08] MEDS ORDERED: ALBUTEROL SO4 8 GM HFA INHALER IH PRN (12:41)
[2018-08-08] MEDS ORDERED: METHADONE HCL 10 MG TABLET (FOR DETOX USE ONLY) PO ONE ×2 (13:05→23:00)
[2018-08-08] MEDS: NICOTINE 21 MG/24 HOURS TOPICAL PATCH TD SCH (13:15)
[2018-08-08] MEDS: chlordiazePOXIDE HCL 25 MG CAPSULE PO SCH ×2 (17:01→22:15)
[2018-08-08 17:58] LABS: PH,URINE 6.5 (5.0-8.0); URINE APPEARANCE CLEAR; URINE BILIRUBIN NEGATIVE (NEGATIVE); URINE COLOR YELLOW; URINE GLUCOSE (UA) NEGATIVE (NEGATIVE); URINE KETONE NEGATIVE (NEGATIVE); URINE LEUK ESTERASE NEGATIVE (NEGATIVE); URINE NITRITE NEGATIVE (NEGATIVE); URINE PROTEIN NEGATIVE (NEGATIVE)
[2018-08-08 18:00] LABS: HEMATOCRIT 43.6 % (35.4-49); HEMOGLOBIN 14.3 GM/dL (11.7-16.9); MCH 29.5 pg (25.7-33.7); MCHC 32.8 g/dl (32.0-35.9); MEAN CELL VOLUME 89.9 fl (80-96); MEAN PLT VOLUME 8.3 fl (7.5-11.1); PLATELET COUNT 244 K/MM3 (134-434); RBC 4.85 M/mm3 (4.00-5.60); RDW 14.8 % (11.9-15.9)
[2018-08-08 18:10] LABS: BILIRUBIN,TOTAL 0.3 mg/dL (0.2-1); CALCIUM 9.2 mg/dL (8.5-10.1); CREATININE 0.9 mg/dL (0.55-1.3); POTASSIUM 4.6 mmol/L (3.5-5.1); TOT PROT 7.6 g/dl (6.4-8.2)
[2018-08-08] MEDS: THIAMINE HCL 100 MG TABLET (FP) PO SCH (22:16)
[2018-08-08] MEDS: MELATONIN 5 MG TABLETS PO PRN (22:16)
[2018-08-09] MEDS: chlordiazePOXIDE HCL 25 MG CAPSULE PO SCH ×4 (05:05→22:28)
--- NOTE | 2018-08-09 09:32 | PN ---
S COWS - Scale Resting Pulse: 0= [place] 80 or Below Sweatin= Chills/Flushing Restless Observation: 3= Extraneous Movement Pupil Size: 0= Normal to Room Light Bone or Joint Aches: 2= Severe Diffuse Aches Runny Nose/ Eye Tearin= None GI Upset > 30mins: 0= None Tremor Observation of Outstretched Hands: 2= Slight Tremor Visible Yawning Observation: 1= 1-2x During Session Anxiety or Irritability: 2=Irritable/Anxious Goose Flesh Skin: 0=Smooth Skin COWS Score: 11 S Progress Note (SOAP) Subjective: c/o sweats, anxiety, body aches, and irritability. Objective: 08/09/18 09:30 Vital Signs 08/09/18 08/09/18 08/09/18 03:30 06:00 09:14 Temperature 97.7 F 98.3 F Pulse Rate 58 L 67 Respiratory 18 18 18 Rate Blood Pressure 142/71 156/84 Lab Results WBC 3.0 K/mm3 (4.0-10.0) L 08/08/18 12:25 RBC 4.85 M/mm3 (4.00-5.60) 08/08/18 12:25 Hgb 14.3 GM/dL (11.7-16.9) 08/08/18 12:25 Hct 43.6 % (35.4-49) 08/08/18 12:25 MCV 89.9 fl (80-96) 08/08/18 12:25 MCHC 32.8 g/dl (32.0-35.9) 08/08/18 12:25 RDW 14.8 % (11.9-15.9) D 08/08/18 12:25 Plt Count 244 K/MM3 (134-434) 08/08/18 12:25 Sodium 139 mmol/L (136-145) 08/08/18 12:25 Potassium 4.6 mmol/L (3.5-5.1) 08/08/18 12:25 Chloride 101 mmol/L (98-107) 08/08/18 12:25 Carbon Dioxide 31 mmol/L (21-32) 08/08/18 12:25 Anion Gap 6 MMOL/L (8-16) L 08/08/18 12:25 BUN 8 mg/dL (7-18) 08/08/18 12:25 Creatinine 0.9 mg/dL (0.55-1.3) 08/08/18 12:25 Random Glucose 64 mg/dL (74-106) L 08/08/18 12:25 Calcium 9.2 mg/dL (8.5-10.1) 08/08/18 12:25 Labs noted. Assessment: 08/09/18 09:30 AOX3, no distress noted full ROM, ambulating in the unit. withdrawal symptoms persists. 08/09/18 09:31 Plan: Continue detox increase fluids.
[2018-08-09] MEDS ORDERED: METHADONE HCL 5 MG TABLET (FOR DETOX USE ONLY) PO ONE (10:00)
[2018-08-09] MEDS ORDERED: METHADONE HCL 10 MG TABLET (FOR DETOX USE ONLY) PO ONE (10:00)
[2018-08-09] MEDS: NICOTINE 21 MG/24 HOURS TOPICAL PATCH TD SCH (11:00)
[2018-08-09] MEDS: PRENATAL VITAMINS W/ FOLIC ACID TABLET (FP) PO SCH (11:00)
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
[2018-08-09] MEDS: MELATONIN 5 MG TABLETS PO PRN (22:28)
[2018-08-09] MEDS: THIAMINE HCL 100 MG TABLET (FP) PO SCH (22:28)
[2018-08-10] MEDS: chlordiazePOXIDE HCL 25 MG CAPSULE PO SCH ×2 (06:21→10:31)
[2018-08-10] MEDS ORDERED: METHADONE HCL 5 MG TABLET (FOR DETOX USE ONLY) ONE (09:43)
[2018-08-10] MEDS ORDERED: METHADONE HCL 10 MG TABLET (FOR DETOX USE ONLY) ONE (09:43)
[2018-08-10] MEDS ORDERED: METHADONE HCL 10 MG TABLET (FOR DETOX USE ONLY) PO ONE (10:00)
[2018-08-10] MEDS ORDERED: METHADONE (DETOX) 10 MG, METHADONE (DETOX) 5 MG PO ONE (10:00)
[2018-08-10] MEDS: PRENATAL VITAMINS W/ FOLIC ACID TABLET (FP) PO SCH (10:31)
[2018-08-10] MEDS: NICOTINE 21 MG/24 HOURS TOPICAL PATCH TD SCH (10:32)
--- NOTE | 2018-08-10 12:26 | PN ---
S CIWA - CIWA Score Nausea/Vomitin Muscle Tremors: 3 Anxiety: 2 Agitation: 2 Paroxysmal Sweats: 3 Orientation: 0-Oriented Tacttile Disturbances: 0-None Auditory Disturbances: 0-None Visual Disturbances: 0-None Headache: 0-None Present CIWA-Ar Total Score: 12 BHS COWS - Scale Resting Pulse: 0= [place] 80 or Below Sweatin= Chills/Flushing Restless Observation: 3= Extraneous Movement Pupil Size: 0= Normal to Room Light Bone or Joint Aches: 2= Severe Diffuse Aches Runny Nose/ Eye Tearin= Runny Nose/Eyes GI Upset > 30mins: 1= Stomach Cramp Tremor Observation of Outstretched Hands: 2= Slight Tremor Visible Yawning Observation: 0= None Anxiety or Irritability: 2=Irritable/Anxious Goose Flesh Skin: 0=Smooth Skin COWS Score: 13 S Progress Note (SOAP) Subjective: Patient presently denies any withdrawal symptoms stating medication working well. Patient is a little anxious, restless. Objective: 08/10/18 12:23 Last Vital Signs Temp Pulse Resp BP Pulse Ox 98.2 F 78 18 126/76 08/10/18 09:37 08/10/18 09:37 08/10/18 09:37 08/10/18 09:37 Laboratory Tests 08/08/18 08/08/18 08/08/18 12:25 12:25 12:25 WBC 3.0 L RBC 4.85 Hgb 14.3 Hct 43.6 MCV 89.9 MCH 29.5 MCHC 32.8 RDW 14.8 D Plt Count 244 MPV 8.3 Sodium 139 Potassium 4.6 Chloride 101 Carbon Dioxide 31 Anion Gap 6 L BUN 8 Creatinine 0.9 Est GFR (CKD-EPI)AfAm 111.83 Est GFR (CKD-EPI)NonAf 96.49 Random Glucose 64 L Calcium 9.2 Total Bilirubin 0.3 AST 23 ALT 29 Alkaline Phosphatase 90 Total Protein 7.6 Albumin 4.0 Urine Color Urine Appearance Urine pH Ur Specific [place] Urine Protein Urine Glucose (UA) Urine Ketones Urine Blood Urine Nitrite Urine Bilirubin Urine Urobilinogen Ur Leukocyte Esterase RPR Titer Nonreactive 08/08/18 15:15 WBC RBC Hgb Hct MCV MCH MCHC RDW Plt Count MPV Sodium Potassium Chloride Carbon Dioxide Anion Gap BUN Creatinine Est GFR (CKD-EPI)AfAm Est GFR (CKD-EPI)NonAf Random Glucose Calcium Total Bilirubin AST ALT Alkaline Phosphatase Total Protein Albumin Urine Color Yellow Urine Appearance Clear Urine pH 6.5 D Ur Specific [place] 1.015 Urine Protein Negative Urine Glucose (UA) Negative Urine Ketones Negative Urine Blood Negative Urine Nitrite Negative Urine Bilirubin Negative Urine Urobilinogen 1.0 Ur Leukocyte Esterase Negative RPR Titer Labs reviewed Assessment: 08/10/18 12:24 Withdrawal symptoms Plan: Continue detox Encouraged PO water hydration
[2018-08-10] MEDS ORDERED: chlordiazePOXIDE HCL 10 MG CAPSULE PO PRN (17:00)
[2018-08-10] MEDS ORDERED: chlordiazePOXIDE HCL 10 MG CAPSULE PO SCH (17:00)
[2018-08-10 17:56] VITALS: BP 114/55; PULSE 72; TEMP 98.1
--- NOTE | 2018-08-10 22:24 | DS ---
[facility] Detox Discharge Summary Admission Date: 08/08/18 Discharge Date: 08/10/18 - History Present History: Alcohol Dependence, Cannabis Dependence, Cocaine Dependence, Opioid Dependence Additional Comments: Patient admitted with symptoms of alcohol and opiate withdrawal. Pertinent Past History: Nicotine dependence Asthma, weight loss MHHx: Paranoid schizophrenia - Physical Exam Results Vital Signs: Vital Signs Temperature 98.1 F 08/10/18 16:20 Pulse Rate 72 08/10/18 16:20 Respiratory Rate 18 08/10/18 16:20 Blood Pressure 114/55 L 08/10/18 16:20 O2 Sat by Pulse Oximetry (%) Pertinent Admission Physical Exam Findings: Patient admitted to detox for alcohol and opioid use disorder. Has co-occurring cocaine and marijuana use disorder. Laboratory Last Values WBC 3.0 K/mm3 (4.0-10.0) L 08/08/18 12:25 RBC 4.85 M/mm3 (4.00-5.60) 08/08/18 12:25 Hgb 14.3 GM/dL (11.7-16.9) 08/08/18 12:25 Hct 43.6 % (35.4-49) 08/08/18 12:25 MCV 89.9 fl (80-96) 08/08/18 12:25 MCH 29.5 pg (25.7-33.7) 08/08/18 12:25 MCHC 32.8 g/dl (32.0-35.9) 08/08/18 12:25 RDW 14.8 % (11.9-15.9) D 08/08/18 12:25 Plt Count 244 K/MM3 (134-434) 08/08/18 12:25 MPV 8.3 fl (7.5-11.1) 08/08/18 12:25 Sodium 139 mmol/L (136-145) 08/08/18 12:25 Potassium 4.6 mmol/L (3.5-5.1) 08/08/18 12:25 Chloride 101 mmol/L (98-107) 08/08/18 12:25 Carbon Dioxide 31 mmol/L (21-32) 08/08/18 12:25 Anion Gap 6 MMOL/L (8-16) L 08/08/18 12:25 BUN 8 mg/dL (7-18) 08/08/18 12:25 Creatinine 0.9 mg/dL (0.55-1.3) 08/08/18 12:25 Est GFR (CKD-EPI)AfAm 111.83 08/08/18 12:25 Est GFR (CKD-EPI)NonAf 96.49 08/08/18 12:25 Random Glucose 64 mg/dL (74-106) L 08/08/18 12:25 Calcium 9.2 mg/dL (8.5-10.1) 08/08/18 12:25 Total Bilirubin 0.3 mg/dL (0.2-1) 08/08/18 12:25 AST 23 U/L (15-37) 08/08/18 12:25 ALT 29 U/L (13-61) 08/08/18 12:25 Alkaline Phosphatase 90 U/L (45-117) 08/08/18 12:25 Total Protein 7.6 g/dl (6.4-8.2) 08/08/18 12:25 Albumin 4.0 g/dl (3.4-5.0) 08/08/18 12:25 Urine Color Yellow 08/08/18 15:15 Urine Appearance Clear 08/08/18 15:15 Urine pH 6.5 (5.0-8.0) D 08/08/18 15:15 Ur Specific [place] 1.015 (1.010-1.035) 08/08/18 15:15 Urine Protein Negative (NEGATIVE) 08/08/18 15:15 Urine Glucose (UA) Negative (NEGATIVE) 08/08/18 15:15 Urine Ketones Negative (NEGATIVE) 08/08/18 15:15 Urine Blood Negative (NEGATIVE) 08/08/18 15:15 Urine Nitrite Negative (NEGATIVE) 08/08/18 15:15 Urine Bilirubin Negative (NEGATIVE) 08/08/18 15:15 Urine Urobilinogen 1.0 mg/dL (0.2-1.0) 08/08/18 15:15 Ur Leukocyte Esterase Negative (NEGATIVE) 08/08/18 15:15 RPR Titer Nonreactive (NONREACTIVE) 08/08/18 12:25 Labs reviewed. - Treatment Hospital Course: Detox Protocol Followed (Patient did not complete detox protocol), Discharged Condition Good - Medication Discharge Medications: Ambulatory Orders Albuterol Sulfate Inhaler - [Ventolin HFA Inhaler -] 2 inh PO Q4H PRN #1 inhaler 05/23/18 - Diagnosis (1) Alcohol dependence with uncomplicated withdrawal Status: Acute (2) Opioid dependence with withdrawal Status: Acute (3) Weight loss Status: Chronic (4) Asthma Status: Chronic Qualifiers: Asthma severity: mild Asthma persistence: intermittent Asthma complication type: uncomplicated Qualified Code(s): J45.20 - Mild intermittent asthma, uncomplicated (5) Cannabis dependence Status: Chronic (6) Cocaine dependence Status: Chronic Qualifiers: Substance use status: uncomplicated Qualified Code(s): F14.20 - Cocaine dependence, uncomplicated (7) Nicotine dependence Status: Chronic Qualifiers: Nicotine product type: cigarettes Substance use status: uncomplicated Qualified Code(s): F17.210 - Nicotine dependence, cigarettes, uncomplicated - AMA Did Patient Leave Against Medical Advice: Yes (Patient refused to meet w/ Provider)
[2018-08-11] MEDS ORDERED: METHADONE HCL 5 MG TABLET (FOR DETOX USE ONLY) PO ONE (06:00)
[2018-08-11] MEDS ORDERED: METHADONE HCL 10 MG TABLET (FOR DETOX USE ONLY) PO ONE (10:00)
[2018-08-11] MEDS ORDERED: chlordiazePOXIDE HCL 10 MG CAPSULE PO SCH (17:00)
[2018-08-12] MEDS ORDERED: METHADONE HCL 5 MG TABLET (FOR DETOX USE ONLY) PO ONE (06:00)
== END 2018-08-10 16:35 | disposition left against medical advice (07) | DRG 770 ==
LOC: YASAS 09:57 → Y6N 12:36
PROVIDERS: ADMIT Surgery; ATTEND Surgery
PROC: HZ2ZZZZ Detoxification Services for Substance Abuse Treatment (ICD-10-PCS; principal; 2018-08-08)
DX: F11.23 Opioid dependence with withdrawal (principal); F10.230 Alcohol dependence with withdrawal, uncomplicated; F14.20 Cocaine dependence, uncomplicated; F12.20 Cannabis dependence, uncomplicated; F17.213 Nicotine dependence, cigarettes, with withdrawal; F25.9 Schizoaffective disorder, unspecified; J45.20 Mild intermittent asthma, uncomplicated; R63.4 Abnormal weight loss; Z68.27 Body mass index [BMI] 27.0-27.9, adult; Z91.5 Personal history of self-harm; Z88.0 Allergy status to penicillin
CPT/HCPCS: 36415; 80053; 81003; 85027; 86593

== ENCOUNTER 2018-10-28 10:04 | Inpatient (IN) | payer OTHER ==
[2018-10-28 11:22] VITALS: BMI 25.4
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
[2018-10-28] MEDS ORDERED: cloNIDine HCL 0.1 MG TABLET PO PRN (12:46)
[2018-10-28] MEDS ORDERED: ACETAMINOPHEN 325 MG TABLET (FP) PO PRN ×2 (12:46)
[2018-10-28] MEDS ORDERED: MAGNESIUM HYDROX 2400MG/30ML ORAL SUSPENSION 30 ML CUP PO PRN (12:46)
[2018-10-28] MEDS ORDERED: MENTHOL/PHENOL 1 EACH UD MM PRN (12:46)
[2018-10-28] MEDS ORDERED: BISMUTH SUBSALICYLATE 524 MG/30 ML UD PO PRN (12:46)
[2018-10-28] MEDS ORDERED: MAGNESIUM CITRATE 300 ML BOTTLE PO PRN (12:46)
[2018-10-28] MEDS ORDERED: hydrOXYzine PAMOATE 25 MG CAPSULE (FP) PO PRN (12:46)
[2018-10-28] MEDS ORDERED: METHOCARBAMOL 500 MG TABLET PO PRN (12:46)
[2018-10-28] MEDS ORDERED: MAG HYDROX/AL HYDROX/SIMETH 30 ML UNIT-DOSE CUP PO PRN (12:46)
[2018-10-28] MEDS ORDERED: IBUPROFEN 400 MG TABLET (FP) PO PRN (12:46)
[2018-10-28] MEDS ORDERED: ALBUTEROL SO4 8 GM HFA INHALER IH PRN (12:54)
[2018-10-28] MEDS ORDERED: METHADONE HCL 10 MG TABLET (FOR DETOX USE ONLY) PO ONE (14:00)
[2018-10-28 15:42] LABS: HEMATOCRIT 40.8 % (35.4-49); HEMOGLOBIN 13.7 GM/dL (11.7-16.9); MCH 29.8 pg (25.7-33.7); MCHC 33.5 g/dl (32.0-35.9); MEAN CELL VOLUME 88.8 fl (80-96); PLATELET COUNT 209 K/MM3 (134-434); RBC 4.59 M/mm3 (4.00-5.60); RDW 13.6 % (11.9-15.9); WHITE BLOOD COUNT 2.6 K/mm3 (4.0-10.0)
[2018-10-28 16:13] LABS: ALBUMIN 3.6 g/dl (3.4-5.0); BILIRUBIN,TOTAL 0.4 mg/dL (0.2-1); BLOOD UREA NITROGEN 7.8 mg/dL (7-18); CALCIUM 8.6 mg/dL (8.5-10.1); CREATININE 0.8 mg/dL (0.55-1.3); POTASSIUM 4.2 mmol/L (3.5-5.1); TOT PROT 6.7 g/dl (6.4-8.2)
[2018-10-28] MEDS: THIAMINE HCL 100 MG TABLET (FP) PO SCH (22:14)
[2018-10-29] MEDS ORDERED: METHADONE HCL 5 MG TABLET (FOR DETOX USE ONLY) ONE (09:35)
[2018-10-29] MEDS ORDERED: METHADONE HCL 10 MG TABLET (FOR DETOX USE ONLY) ONE (09:36)
[2018-10-29] MEDS ORDERED: METHADONE (DETOX) 20 MG, METHADONE (DETOX) 5 MG PO ONE (10:00)
[2018-10-29] MEDS: PRENATAL VITAMINS W/ FOLIC ACID TABLET (FP) PO SCH (10:07)
--- NOTE | 2018-10-29 14:03 | PN ---
[facility] CIWA - CIWA Score Nausea/Vomitin-No Nausea/No Vomiting Muscle Tremors: 2 Anxiety: 3 Agitation: 0-Normal Activity Paroxysmal Sweats: 3 Orientation: 0-Oriented Tacttile Disturbances: 2-Mild Itch/Numbness/Burn Auditory Disturbances: 1-Very Mild Visual Disturbances: 0-None Headache: 0-None Present CIWA-Ar Total Score: 11 S COWS - Scale Resting Pulse: 2= [place] 101-120 Sweatin= Chills/Flushing Restless Observation: 1= Difficult to Sit Still Pupil Size: 0= Normal to Room Light Bone or Joint Aches: 2= Severe Diffuse Aches Runny Nose/ Eye Tearin= None GI Upset > 30mins: 0= None Tremor Observation of Outstretched Hands: 2= Slight Tremor Visible Yawning Observation: 1= 1-2x During Session Anxiety or Irritability: 2=Irritable/Anxious Goose Flesh Skin: 3=Piloerection COWS Score: 14 S Progress Note (SOAP) Subjective: Tremors, Sweating, Chills, Anxious. Objective: PATIENT A & O X 3. IN NO ACUTE DISTRESS. 10/29/18 14:05 Vital Signs Temperature 97.0 F L 10/29/18 13:29 Pulse Rate 50 L 10/29/18 13:29 Respiratory Rate 18 10/29/18 13:29 Blood Pressure 148/84 10/29/18 13:29 O2 Sat by Pulse Oximetry (%) PATIENT DENIES KNOWN HISTORY OF HYPERTENSION. Laboratory Tests 10/28/18 10/28/18 10/28/18 13:30 13:30 13:30 WBC 2.6 L RBC 4.59 Hgb 13.7 Hct 40.8 MCV 88.8 MCH 29.8 MCHC 33.5 RDW 13.6 Plt Count 209 MPV 8.0 Sodium 140 Potassium 4.2 Chloride 105 Carbon Dioxide 31 Anion Gap 5 L BUN 7.8 Creatinine 0.8 Est GFR (CKD-EPI)AfAm 117.38 Est GFR (CKD-EPI)NonAf 101.27 Random Glucose 84 Calcium 8.6 Total Bilirubin 0.4 AST 18 ALT 22 Alkaline Phosphatase 70 Total Protein 6.7 Albumin 3.6 RPR Titer Nonreactive LABS NOTED. PATIENT HAS HAD LOW WBC LEVELS ON PREVIOUS ADMISSIONS. 10/29/18 14:06 Assessment: 10/29/18 14:07 WITHDRAWAL SYMPTOMS. LEUKOPENIA. ELEVATED BLOOD PRESSURE WITHOUT DIAGNOSIS OF HYPERTENSION. 10/29/18 14:09 Plan: CONTINUE DETOX. INCREASE DAILY PO WATER INTAKE. CONTINUE TO MONITOR BLOOD PRESSURE.
[2018-10-29] MEDS: THIAMINE HCL 100 MG TABLET (FP) PO SCH (22:13)
[2018-10-30] MEDS ORDERED: METHADONE HCL 10 MG TABLET (FOR DETOX USE ONLY) PO ONE (10:00)
[2018-10-30] MEDS: PRENATAL VITAMINS W/ FOLIC ACID TABLET (FP) PO SCH (10:11)
--- NOTE | 2018-10-30 14:58 | PN ---
S CIWA - CIWA Score Nausea/Vomitin-No Nausea/No Vomiting Muscle Tremors: 2 Anxiety: 2 Agitation: 0-Normal Activity Paroxysmal Sweats: 3 Orientation: 0-Oriented Tacttile Disturbances: 1-Very Mild Itch/Numbness Auditory Disturbances: 0-None Visual Disturbances: 2-Mild Sensitivity Headache: 0-None Present CIWA-Ar Total Score: 10 BHS COWS - Scale Resting Pulse: 0= [place] 80 or Below Sweatin= Chills/Flushing Restless Observation: 0= Sits Still Pupil Size: 0= Normal to Room Light Bone or Joint Aches: 0= None Runny Nose/ Eye Tearin= None GI Upset > 30mins: 0= None Tremor Observation of Outstretched Hands: 2= Slight Tremor Visible Yawning Observation: 1= 1-2x During Session Anxiety or Irritability: 2=Irritable/Anxious Goose Flesh Skin: 3=Piloerection COWS Score: 9 BHS Progress Note (SOAP) Subjective: Tremors, Sweating, Fatigue. Objective: PATIENT A & O X 3, OBSERVED AMBULATING ON UNIT UNASSISTED. IN NO ACUTE DISTRESS. 10/30/18 14:57 Vital Signs Temperature 97.7 F 10/30/18 13:25 Pulse Rate 51 L 10/30/18 13:25 Respiratory Rate 18 10/30/18 13:25 Blood Pressure 124/63 10/30/18 13:25 O2 Sat by Pulse Oximetry (%) Laboratory Tests 10/28/18 10/28/18 10/28/18 13:30 13:30 13:30 WBC 2.6 L RBC 4.59 Hgb 13.7 Hct 40.8 MCV 88.8 MCH 29.8 MCHC 33.5 RDW 13.6 Plt Count 209 MPV 8.0 Sodium 140 Potassium 4.2 Chloride 105 Carbon Dioxide 31 Anion Gap 5 L BUN 7.8 Creatinine 0.8 Est GFR (CKD-EPI)AfAm 117.38 Est GFR (CKD-EPI)NonAf 101.27 Random Glucose 84 Calcium 8.6 Total Bilirubin 0.4 AST 18 ALT 22 Alkaline Phosphatase 70 Total Protein 6.7 Albumin 3.6 RPR Titer Nonreactive LABS NOTED. Assessment: 10/30/18 14:57 WITHDRAWAL SYMPTOMS. LEUKOPENIA. Plan: CONTINUE DETOX.
[2018-10-30] MEDS: THIAMINE HCL 100 MG TABLET (FP) PO SCH (22:04)
--- NOTE | 2018-10-31 08:45 | PN ---
[facility] CIWA - CIWA Score Nausea/Vomitin-No Nausea/No Vomiting Muscle Tremors: 2 Anxiety: 0-No Anxiety, at Ease Agitation: 1-Slight > Activity Paroxysmal Sweats: No Perspiration Orientation: 0-Oriented Tacttile Disturbances: 0-None Auditory Disturbances: 0-None Visual Disturbances: 0-None Headache: 1-Very Mild CIWA-Ar Total Score: 4 S COWS - Scale Resting Pulse: 0= [place] 80 or Below Sweatin= No chills or Flushing Restless Observation: 0= Sits Still Pupil Size: 0= Normal to Room Light Bone or Joint Aches: 1= Mild Discomfort Runny Nose/ Eye Tearin= None GI Upset > 30mins: 0= None Tremor Observation of Outstretched Hands: 2= Slight Tremor Visible Yawning Observation: 1= 1-2x During Session Anxiety or Irritability: 1=Feels Anxious/Irritable Goose Flesh Skin: 0=Smooth Skin COWS Score: 5 S Progress Note (SOAP) Subjective: Patient is doing well and seen in bed with no distress, Alert and oriented x 3 and communicative with this copywriter. Objective: 10/31/18 08:45 Laboratory 10/28/18 10/28/18 10/28/18 13:30 13:30 13:30 WBC 2.6 K/mm3 L K/mm3 (4.0-10.0) RBC 4.59 M/mm3 M/mm3 (4.00-5.60) Hgb 13.7 GM/dL GM/dL (11.7-16.9) Hct 40.8 % % (35.4-49) MCV 88.8 fl fl (80-96) MCH 29.8 pg pg (25.7-33.7) MCHC 33.5 g/dl g/dl (32.0-35.9) RDW 13.6 % % (11.9-15.9) Plt Count 209 K/MM3 K/MM3 (134-434) MPV 8.0 fl fl (7.5-11.1) Sodium 140 mmol/L mmol/L (136-145) Potassium 4.2 mmol/L mmol/L (3.5-5.1) Chloride 105 mmol/L mmol/L (98-107) Carbon Dioxide 31 mmol/L mmol/L (21-32) Anion Gap 5 MMOL/L L MMOL/L (8-16) BUN 7.8 mg/dL mg/dL (7-18) Creatinine 0.8 mg/dL mg/dL (0.55-1.3) Est GFR (CKD-EPI)AfAm 117.38 Est GFR (CKD-EPI)NonAf 101.27 Random Glucose 84 mg/dL mg/dL (74-106) Calcium 8.6 mg/dL mg/dL (8.5-10.1) Total Bilirubin 0.4 mg/dL mg/dL (0.2-1) AST 18 U/L U/L (15-37) ALT 22 U/L U/L (13-61) Alkaline Phosphatase 70 U/L U/L (45-117) Total Protein 6.7 g/dl g/dl (6.4-8.2) Albumin 3.6 g/dl g/dl (3.4-5.0) RPR Titer Nonreactive (NONREACTIVE) Assessment: 10/31/18 Assessment: 1. Detox from alcohol and opioids: 2 full days of protocol, continue protocol. Vitals stable and afebrile only slight tremors is subjectively bothering him. Dr. Chacon Plan: Plan: Continue protocols and as needed medications. Doing very well on set protocol. Dr. Chacon
[2018-10-31] MEDS ORDERED: METHADONE HCL 5 MG TABLET (FOR DETOX USE ONLY) ONE (08:50)
[2018-10-31] MEDS ORDERED: METHADONE HCL 10 MG TABLET (FOR DETOX USE ONLY) ONE (08:50)
[2018-10-31] MEDS: PRENATAL VITAMINS W/ FOLIC ACID TABLET (FP) PO SCH (09:30)
[2018-10-31] MEDS ORDERED: METHADONE (DETOX) 10 MG, METHADONE (DETOX) 5 MG PO ONE (10:00)
[2018-10-31] MEDS: MELATONIN 5 MG TABLETS PO PRN (22:11)
[2018-10-31] MEDS: THIAMINE HCL 100 MG TABLET (FP) PO SCH (22:11)
[2018-11-01] MEDS ORDERED: METHADONE HCL 10 MG TABLET (FOR DETOX USE ONLY) PO ONE (10:00)
[2018-11-01] MEDS: PRENATAL VITAMINS W/ FOLIC ACID TABLET (FP) PO SCH (10:17)
--- NOTE | 2018-11-01 11:22 | PN ---
BHS COWS - Scale Resting Pulse: 0= ID 80 or Below Sweatin= No chills or Flushing Restless Observation: 0= Sits Still Pupil Size: 0= Normal to Room Light Bone or Joint Aches: 1= Mild Discomfort Runny Nose/ Eye Tearin= None GI Upset > 30mins: 0= None Tremor Observation of Outstretched Hands: 1= Tremor [place], Not Seen Yawning Observation: 1= 1-2x During Session Anxiety or Irritability: 1=Feels Anxious/Irritable Goose Flesh Skin: 0=Smooth Skin COWS Score: 4 BHS Progress Note (SOAP) Subjective: tired Objective: 11/01/18 11:22 Vital Signs Temperature 96.6 F L 11/01/18 09:18 Pulse Rate 50 L 11/01/18 09:18 Respiratory Rate 18 11/01/18 09:18 Blood Pressure 125/68 11/01/18 09:18 O2 Sat by Pulse Oximetry (%) aaox3 ambulating no acute distress Assessment: 11/01/18 11:22 mild to no withdrawal Plan: continue detox increase fluids d/c in am
[2018-11-01] MEDS: THIAMINE HCL 100 MG TABLET (FP) PO SCH (22:17)
[2018-11-01] MEDS: MELATONIN 5 MG TABLETS PO PRN (22:17)
[2018-11-02] MEDS ORDERED: METHADONE HCL 5 MG TABLET (FOR DETOX USE ONLY) PO ONE (06:00)
[2018-11-02 06:25] VITALS: BP 143/65; PULSE 47; TEMP 97
--- NOTE | 2018-11-02 12:05 | DS ---
[facility] Detox Discharge Summary Admission Date: 10/28/18 Discharge Date: 11/02/18 - History Present History: Alcohol Dependence, Cannabis Dependence, Cocaine Dependence, Opioid Dependence Additional Comments: Pt completed detox successfully and is stable for discharge today. Pt instructed to follow up with PCP within 1-2 weeks post discharge. Pertinent Past History: Asthma Paranoid schizophrenia Nicotine dependence - Physical Exam Results Vital Signs: Vital Signs Temperature 97.0 F L 11/02/18 06:00 Pulse Rate 47 L 11/02/18 06:00 Respiratory Rate 18 11/02/18 06:00 Blood Pressure 143/65 11/02/18 06:00 O2 Sat by Pulse Oximetry (%) Elevated b/p most likely r/t anxiety Pertinent Admission Physical Exam Findings: Withdrawal sxs Laboratory Tests 10/28/18 10/28/18 10/28/18 13:30 13:30 13:30 WBC 2.6 L RBC 4.59 Hgb 13.7 Hct 40.8 MCV 88.8 MCH 29.8 MCHC 33.5 RDW 13.6 Plt Count 209 MPV 8.0 Sodium 140 Potassium 4.2 Chloride 105 Carbon Dioxide 31 Anion Gap 5 L BUN 7.8 Creatinine 0.8 Est GFR (CKD-EPI)AfAm 117.38 Est GFR (CKD-EPI)NonAf 101.27 Random Glucose 84 Calcium 8.6 Total Bilirubin 0.4 AST 18 ALT 22 Alkaline Phosphatase 70 Total Protein 6.7 Albumin 3.6 RPR Titer Nonreactive Labs reviewed - Treatment Hospital Course: Detox Protocol Followed, Detoxed Safely, Responded well, Discharged Condition Good - Medication Discharge Medications: Ambulatory Orders Albuterol Sulfate Inhaler - [Ventolin HFA Inhaler -] 2 inh PO Q4H PRN #1 inhaler 05/23/18 - Diagnosis (1) Paranoid schizophrenia Current Visit: Yes Status: Chronic (2) Opioid dependence with withdrawal Current Visit: Yes Status: Acute (3) Asthma Current Visit: Yes Status: Chronic Qualifiers: Asthma severity: mild Asthma persistence: intermittent Asthma complication type: uncomplicated Qualified Code(s): J45.20 - Mild intermittent asthma, uncomplicated (4) Cannabis dependence Current Visit: Yes Status: Chronic (5) Cocaine dependence Current Visit: Yes Status: Chronic Qualifiers: Substance use status: uncomplicated Qualified Code(s): F14.20 - Cocaine dependence, uncomplicated (6) Nicotine dependence Current Visit: Yes Status: Chronic Qualifiers: Nicotine product type: cigarettes Substance use status: uncomplicated Qualified Code(s): F17.210 - Nicotine dependence, cigarettes, uncomplicated (7) Alcohol dependence with uncomplicated withdrawal Current Visit: Yes Status: Acute (8) Elevated blood-pressure reading, without diagnosis of hypertension Current Visit: Yes Status: Acute - AMA Did Patient Leave Against Medical Advice: No (F/U with PCP within 1-2 weeks post discharge)
== END 2018-11-02 09:45 | disposition home or self-care (01) | DRG 773 ==
LOC: YASAS 10:04 → Y6N 13:23
PROVIDERS: ADMIT Surgery; ATTEND Surgery
PROC: HZ2ZZZZ Detoxification Services for Substance Abuse Treatment (ICD-10-PCS; principal; 2018-10-28)
DX: F11.23 Opioid dependence with withdrawal (principal); F10.230 Alcohol dependence with withdrawal, uncomplicated; F14.20 Cocaine dependence, uncomplicated; F12.20 Cannabis dependence, uncomplicated; F17.210 Nicotine dependence, cigarettes, uncomplicated; F20.0 Paranoid schizophrenia; J45.909 Unspecified asthma, uncomplicated; R03.0 Elevated blood-pressure reading, without diagnosis of hypertension; D72.819 Decreased white blood cell count, unspecified
CPT/HCPCS: 36415; 80053; 85027; 86593

== ENCOUNTER 2020-04-10 08:13 | Inpatient (IN) | payer OTHER ==
[2020-04-10 09:26] VITALS: BMI 24.3
[2020-04-10] MEDS ORDERED: MENTHOL/PHENOL 1 EACH UD MM PRN (10:30)
[2020-04-10] MEDS ORDERED: cloNIDine HCL 0.1 MG TABLET PO PRN (10:30)
[2020-04-10] MEDS ORDERED: ACETAMINOPHEN 325 MG TABLET (FP) PO PRN ×2 (10:30)
[2020-04-10] MEDS ORDERED: METHADONE HCL 10 MG TABLET (FOR DETOX USE ONLY) PO ONE (10:30)
[2020-04-10] MEDS ORDERED: IBUPROFEN 400 MG TABLET (FP) PO PRN (10:30)
[2020-04-10] MEDS ORDERED: MAGNESIUM HYDROX 2400MG/30ML ORAL SUSPENSION 30 ML CUP PO PRN (10:30)
[2020-04-10] MEDS ORDERED: NICOTINE POLACRILEX 2 MG GUM BUC PRN (10:30)
[2020-04-10] MEDS ORDERED: chlordiazePOXIDE HCL 25 MG CAPSULE PO PRN (10:30)
[2020-04-10] MEDS ORDERED: MAGNESIUM CITRATE 300 ML BOTTLE PO PRN (10:30)
[2020-04-10] MEDS ORDERED: METHOCARBAMOL 500 MG TABLET PO PRN (10:30)
[2020-04-10] MEDS ORDERED: ONDANSETRON *ODT* 4 MG TABLET SL PRN (10:30)
[2020-04-10] MEDS ORDERED: MAG HYDROX/AL HYDROX/SIMETH 30 ML UNIT-DOSE CUP PO PRN (10:30)
[2020-04-10] MEDS ORDERED: BISMUTH SUBSALICYLATE 524 MG/30 ML UD PO PRN (10:30)
[2020-04-10] MEDS ORDERED: ALBUTEROL SO4 HFA INHALER IH PRN (11:36)
[2020-04-10] MEDS: NICOTINE 21 MG/24 HOURS TOPICAL PATCH TD SCH (12:45)
[2020-04-10] MEDS: chlordiazePOXIDE HCL 25 MG CAPSULE PO SCH ×3 (12:48→22:18)
[2020-04-10] MEDS: hydrOXYzine PAMOATE 25 MG CAPSULE (FP) PO SCH ×3 (13:29→22:18)
[2020-04-10] MEDS: THIAMINE HCL 100 MG TABLET (FP) PO SCH (22:18)
[2020-04-10] MEDS: MELATONIN 5 MG TABLETS PO SCH (22:18)
[2020-04-11] MEDS: chlordiazePOXIDE HCL 25 MG CAPSULE PO SCH ×4 (05:08→22:28)
[2020-04-11] MEDS: hydrOXYzine PAMOATE 25 MG CAPSULE (FP) PO SCH ×5 (05:09→22:28)
[2020-04-11] MEDS ORDERED: METHADONE HCL 5 MG TABLET (FOR DETOX USE ONLY) ONE (09:05)
[2020-04-11] MEDS ORDERED: METHADONE HCL 10 MG TABLET (FOR DETOX USE ONLY) ONE (09:05)
[2020-04-11] MEDS ORDERED: METHADONE (DETOX) 20 MG, METHADONE (DETOX) 5 MG PO ONE (10:00)
[2020-04-11] MEDS: NICOTINE 21 MG/24 HOURS TOPICAL PATCH TD SCH (10:48)
[2020-04-11] MEDS: PRENATAL VITAMINS W/ FOLIC ACID TABLET (FP) PO SCH (10:48)
[2020-04-11 12:03] LABS: POTASSIUM 4.2 mmol/L (3.5-5.1)
[2020-04-11 12:09] LABS: ALBUMIN 3.4 g/dl (3.4-5.0); BLOOD UREA NITROGEN 16.7 mg/dL (7-18); CALCIUM 8.8 mg/dL (8.5-10.1)
[2020-04-11 12:12] LABS: CREATININE 0.8 mg/dL (0.55-1.3)
[2020-04-11 12:13] LABS: BILIRUBIN,TOTAL 0.3 mg/dL (0.2-1); TOT PROT 6.3 g/dl (6.4-8.2)
[2020-04-11 12:17] LABS: HEMOGLOBIN 13.1 GM/dL (11.7-16.9); MCH 29.9 pg (25.7-33.7); MCHC 33.5 g/dl (32.0-35.9); MEAN CELL VOLUME 89.3 fl (80-96); MEAN PLT VOLUME 8.5 fl (7.5-11.1); PLATELET COUNT 184 K/MM3 (134-434); RBC 4.37 M/mm3 (4.00-5.60); RDW 13.5 % (11.9-15.9); WHITE BLOOD COUNT 4.3 K/mm3 (4.0-10.0)
[2020-04-11] MEDS: THIAMINE HCL 100 MG TABLET (FP) PO SCH (22:28)
[2020-04-11] MEDS: MELATONIN 5 MG TABLETS PO SCH (22:28)
[2020-04-12] MEDS: chlordiazePOXIDE HCL 25 MG CAPSULE PO SCH ×4 (05:23→22:33)
[2020-04-12] MEDS: hydrOXYzine PAMOATE 25 MG CAPSULE (FP) PO SCH ×5 (05:23→22:33)
[2020-04-12] MEDS ORDERED: METHADONE HCL 10 MG TABLET (FOR DETOX USE ONLY) PO ONE (10:00)
[2020-04-12] MEDS: PRENATAL VITAMINS W/ FOLIC ACID TABLET (FP) PO SCH (10:23)
[2020-04-12] MEDS: NICOTINE 21 MG/24 HOURS TOPICAL PATCH TD SCH (10:25)
[2020-04-12] MEDS: MELATONIN 5 MG TABLETS PO SCH (22:33)
[2020-04-12] MEDS: THIAMINE HCL 100 MG TABLET (FP) PO SCH (22:33)
[2020-04-13] MEDS ORDERED: chlordiazePOXIDE HCL 10 MG CAPSULE PO PRN
[2020-04-13] MEDS: chlordiazePOXIDE HCL 10 MG CAPSULE PO SCH ×4 (05:33→22:06)
[2020-04-13] MEDS: hydrOXYzine PAMOATE 25 MG CAPSULE (FP) PO SCH ×5 (05:33→22:06)
[2020-04-13] MEDS ORDERED: METHADONE HCL 10 MG TABLET (FOR DETOX USE ONLY) ONE (09:06)
[2020-04-13] MEDS ORDERED: METHADONE HCL 5 MG TABLET (FOR DETOX USE ONLY) ONE (09:06)
[2020-04-13] MEDS ORDERED: METHADONE (DETOX) 10 MG, METHADONE (DETOX) 5 MG PO ONE (10:00)
[2020-04-13] MEDS: PRENATAL VITAMINS W/ FOLIC ACID TABLET (FP) PO SCH (10:17)
[2020-04-13] MEDS: NICOTINE 21 MG/24 HOURS TOPICAL PATCH TD SCH (10:17)
[2020-04-13] MEDS: MELATONIN 5 MG TABLETS PO SCH (22:06)
[2020-04-13] MEDS: THIAMINE HCL 100 MG TABLET (FP) PO SCH (22:06)
[2020-04-14] MEDS: hydrOXYzine PAMOATE 25 MG CAPSULE (FP) PO SCH ×2 (05:27→09:52)
[2020-04-14] MEDS: chlordiazePOXIDE HCL 10 MG CAPSULE PO SCH ×2 (05:28→17:22)
[2020-04-14] MEDS: NICOTINE 21 MG/24 HOURS TOPICAL PATCH TD SCH (09:52)
[2020-04-14] MEDS: PRENATAL VITAMINS W/ FOLIC ACID TABLET (FP) PO SCH (09:52)
[2020-04-14] MEDS ORDERED: METHADONE HCL 10 MG TABLET (FOR DETOX USE ONLY) PO ONE (10:00)
[2020-04-14] MEDS ORDERED: hydrOXYzine PAMOATE 25 MG CAPSULE (FP) PO PRN (11:12)
[2020-04-14] MEDS: THIAMINE HCL 100 MG TABLET (FP) PO SCH (22:07)
[2020-04-14] MEDS: MELATONIN 5 MG TABLETS PO SCH (22:07)
[2020-04-15] MEDS ORDERED: chlordiazePOXIDE HCL 10 MG CAPSULE PO ONE (05:00)
[2020-04-15] MEDS ORDERED: METHADONE HCL 5 MG TABLET (FOR DETOX USE ONLY) PO ONE (06:00)
[2020-04-15 07:11] VITALS: BP 90/53; PULSE 60; TEMP 96.6
== END 2020-04-15 09:02 | disposition home or self-care (01) | DRG 773 ==
LOC: YASAS 08:13 → Y3N 11:55
PROVIDERS: ADMIT Allergy & Immunology; ATTEND Allergy & Immunology
PROC: HZ2ZZZZ Detoxification Services for Substance Abuse Treatment (ICD-10-PCS; principal; 2020-04-10)
DX: F11.23 Opioid dependence with withdrawal (principal); F10.230 Alcohol dependence with withdrawal, uncomplicated; F14.20 Cocaine dependence, uncomplicated; F12.20 Cannabis dependence, uncomplicated; F17.210 Nicotine dependence, cigarettes, uncomplicated; J45.909 Unspecified asthma, uncomplicated; R63.4 Abnormal weight loss; Z68.24 Body mass index [BMI] 24.0-24.9, adult; Z86.59 Personal history of other mental and behavioral disorders; Z98.890 Other specified postprocedural states; Z88.0 Allergy status to penicillin
CPT/HCPCS: 36415; 80053; 85027; 86780; C9803; U0003

== ENCOUNTER 2021-05-10 09:43 | Inpatient (IN) | payer OTHER ==
[2021-05-10] MEDS ORDERED: LOPERAMIDE HCL 2 MG CAPSULE PO PRN (10:09)
[2021-05-10] MEDS ORDERED: MAG HYDROX/AL HYDROX/SIMETH 30 ML UNIT-DOSE CUP PO PRN (10:09)
[2021-05-10] MEDS ORDERED: MAGNESIUM HYDROX 2400MG/30ML ORAL SUSPENSION 30 ML CUP PO PRN (10:09)
[2021-05-10] MEDS ORDERED: BISMUTH SUBSALICYLATE 262 MG/15 ML BTL PO PRN (10:09)
[2021-05-10] MEDS ORDERED: IBUPROFEN 400 MG TABLET (FP) PO PRN (10:09)
[2021-05-10] MEDS ORDERED: MENTHOL/PHENOL 1 EACH UD MM PRN (10:09)
[2021-05-10] MEDS ORDERED: MAGNESIUM CITRATE 300 ML BOTTLE PO PRN (10:09)
[2021-05-10] MEDS ORDERED: ONDANSETRON *ODT* 4 MG TABLET SL PRN (10:09)
[2021-05-10] MEDS ORDERED: cloNIDine HCL 0.1 MG TABLET PO PRN (10:09)
[2021-05-10] MEDS ORDERED: NICOTINE 10 MG CARTRIDGE (INHALER) IH PRN (10:09)
[2021-05-10] MEDS ORDERED: ACETAMINOPHEN 325 MG TABLET (FP) PO PRN ×2 (10:09)
[2021-05-10] MEDS ORDERED: methaDONE HCL 10 MG TABLET (FOR DETOX USE ONLY) PO ONE (10:09)
[2021-05-10 10:49] VITALS: BMI 22.8
[2021-05-10 13:42] LABS: HEMATOCRIT 36.8 % (35.4-49); HEMOGLOBIN 12.6 GM/dL (11.7-16.9); MCH 29.5 pg (25.7-33.7); MCHC 34.1 g/dl (32.0-35.9); MEAN CELL VOLUME 86.6 fl (80-96); MEAN PLT VOLUME 7.8 fl (7.5-11.1); PLATELET COUNT 218 10^3/uL (134-434); RBC 4.25 M/mm3 (4.00-5.60); RDW 14.3 % (11.9-15.9); WHITE BLOOD COUNT 6.8 K/mm3 (4.0-10.0)
[2021-05-10 14:51] LABS: CALCIUM 9.4 mg/dL (8.5-10.1); CREATININE 1.3 mg/dL (0.55-1.3)
[2021-05-10 14:52] LABS: ALBUMIN 3.8 g/dl (3.4-5.0)
[2021-05-10 14:53] LABS: BILIRUBIN,TOTAL 0.3 mg/dL (0.2-1); TOT PROT 7.5 g/dl (6.4-8.2)
[2021-05-10 14:56] LABS: BLOOD UREA NITROGEN 27.9 mg/dL (7-18)
[2021-05-10] MEDS ORDERED: methaDONE HCL 10 MG TABLET (FOR DETOX USE ONLY) ONE (15:18)
[2021-05-10] MEDS: hydrOXYzine PAMOATE 25 MG CAPSULE (FP) PO SCH ×3 (15:24→23:04)
[2021-05-10] MEDS: METHOCARBAMOL 500 MG TABLET PO PRN (15:24)
[2021-05-10] MEDS: PRENATAL VITAMINS W/ FOLIC ACID TABLET (FP) PO SCH (15:25)
[2021-05-10] MEDS: THIAMINE HCL 100 MG TABLET (FP) PO SCH (23:04)
[2021-05-10] MEDS: MELATONIN 5 MG TABLETS PO SCH (23:04)
[2021-05-11] MEDS: hydrOXYzine PAMOATE 25 MG CAPSULE (FP) PO SCH ×5 (05:51→22:31)
[2021-05-11] MEDS ORDERED: methaDONE HCL 10 MG TABLET (FOR DETOX USE ONLY) ONE (09:06)
[2021-05-11] MEDS: PRENATAL VITAMINS W/ FOLIC ACID TABLET (FP) PO SCH (10:40)
[2021-05-11] MEDS: METHOCARBAMOL 500 MG TABLET PO PRN (10:41)
[2021-05-11] MEDS: THIAMINE HCL 100 MG TABLET (FP) PO SCH (22:31)
[2021-05-11] MEDS: MELATONIN 5 MG TABLETS PO SCH (22:31)
[2021-05-12] MEDS: hydrOXYzine PAMOATE 25 MG CAPSULE (FP) PO SCH ×5 (05:44→23:05)
[2021-05-12] MEDS ORDERED: methaDONE HCL 10 MG TABLET (FOR DETOX USE ONLY) PO ONE (10:00)
[2021-05-12] MEDS: PRENATAL VITAMINS W/ FOLIC ACID TABLET (FP) PO SCH (10:39)
[2021-05-12] MEDS: METHOCARBAMOL 500 MG TABLET PO PRN ×2 (10:39→17:42)
[2021-05-12 12:40] LABS: BLOOD UREA NITROGEN 15.8 mg/dL (7-18)
[2021-05-12 12:43] LABS: CREATININE 0.9 mg/dL (0.55-1.3)
[2021-05-12 14:07] LABS: SARS-CoV-2 NAA Not Detected (Not Detected)
[2021-05-12] MEDS: THIAMINE HCL 100 MG TABLET (FP) PO SCH (23:05)
[2021-05-12] MEDS: MELATONIN 5 MG TABLETS PO SCH (23:05)
[2021-05-13] MEDS: hydrOXYzine PAMOATE 25 MG CAPSULE (FP) PO SCH ×5 (05:27→22:12)
[2021-05-13] MEDS ORDERED: methaDONE HCL 10 MG TABLET (FOR DETOX USE ONLY) ONE (09:29)
[2021-05-13] MEDS: PRENATAL VITAMINS W/ FOLIC ACID TABLET (FP) PO SCH (10:14)
[2021-05-13] MEDS: MELATONIN 5 MG TABLETS PO SCH (22:12)
[2021-05-13] MEDS: METHOCARBAMOL 500 MG TABLET PO PRN (22:12)
[2021-05-13] MEDS: THIAMINE HCL 100 MG TABLET (FP) PO SCH (22:12)
[2021-05-14] MEDS: hydrOXYzine PAMOATE 25 MG CAPSULE (FP) PO SCH ×5 (05:16→22:27)
[2021-05-14] MEDS ORDERED: methaDONE HCL 10 MG TABLET (FOR DETOX USE ONLY) PO ONE (10:00)
[2021-05-14] MEDS: PRENATAL VITAMINS W/ FOLIC ACID TABLET (FP) PO SCH (10:54)
[2021-05-14] MEDS: THIAMINE HCL 100 MG TABLET (FP) PO SCH (22:27)
[2021-05-14] MEDS: MELATONIN 5 MG TABLETS PO SCH (22:27)
[2021-05-14] MEDS: METHOCARBAMOL 500 MG TABLET PO PRN (22:28)
[2021-05-15] MEDS: hydrOXYzine PAMOATE 25 MG CAPSULE (FP) PO SCH (05:14)
[2021-05-15] MEDS: METHOCARBAMOL 500 MG TABLET PO PRN (05:16)
[2021-05-15 06:33] VITALS: BP 108/59; PULSE 57; TEMP 96.9
== END 2021-05-15 09:06 | disposition home or self-care (01) | DRG 773 ==
LOC: YASAS 09:43 → Y6N 14:06
PROVIDERS: ADMIT Allergy & Immunology; ATTEND Allergy & Immunology
PROC: HZ2ZZZZ Detoxification Services for Substance Abuse Treatment (ICD-10-PCS; principal; 2021-05-10)
DX: F11.23 Opioid dependence with withdrawal (principal); F10.230 Alcohol dependence with withdrawal, uncomplicated; F14.20 Cocaine dependence, uncomplicated; F16.10 Hallucinogen abuse, uncomplicated; F12.20 Cannabis dependence, uncomplicated; F17.210 Nicotine dependence, cigarettes, uncomplicated; F19.24 Other psychoactive substance dependence with psychoactive substance-induced mood disorder; F20.0 Paranoid schizophrenia; J45.20 Mild intermittent asthma, uncomplicated; Z88.0 Allergy status to penicillin; Z98.890 Other specified postprocedural states
CPT/HCPCS: 36415; 80053; 82565; 84520; 85027; 86780; C9803; U0003; U0005